=== PATIENT | male | born 1940 | race Caucasian/White ===

== ENCOUNTER 2017-12-30 18:26 | Inpatient (IN) | payer MEDICARE, MEDICAID ==
[~2017-12-30] VITALS: Ht 172.7 cm; Wt 71.6 kg
[2017-12-30] MEDS ORDERED: NALOXONE HCL 0.4 MG/ML VIAL IV ONE (18:45)
[2017-12-30 19:19] LABS: Eosinophils # (auto) 0.1 uL; Eosinophils % (auto) 0.7 % (0.0-7.0); Nucleated Red Blood Cells % 0.1 %; White Blood Cell 14.6 10^3/uL (4.4-10.8)
[2017-12-30 19:21] LABS: Basophils # (auto) 0 uL; Basophils % (auto) 0.3 % (0.0-2.0); Hematocrit 23.9 % (41.0-53.0); Hemoglobin 7.7 g/dL (13.5-17.5); Lymphocytes # (auto) 1.4 uL; Lymphocytes % (auto) 9.4 % (10.0-50.0); Mean Corpuscular Hemoglobin 28.5 pg (28.0-32.0); Mean Corpuscular Hgb Conc. 32.3 g/dL (32.0-36.0); Mean Corpuscular Volume 88.2 fL (80.0-100.0); Monocytes # (auto) 0.9 uL; Monocytes % (auto) 6.3 % (0.0-12.0); Neutrophils # (auto) 12.2 uL; Neutrophils % (auto) 83.3 % (37.0-80.0); Platelet Count (auto) 350 10^3/uL (140-450); Red Blood Cells 2.71 10^6/uL (4.5-5.90); Red Cell Distribution Width 14.6 % (11.8-14.3)
[2017-12-30 19:51] LABS: Alanine Aminotransferase 20 U/L (16-61); Albumin 1.7 g/dL (3.4-5.0); Alkaline Phosphatase 94 U/L (45-117); Anion Gap 9 (5-15); Aspartate Aminotransferase 18 U/L (15-37); BUN/Creatinine Ratio 49.2; Bilirubin, Total 0.2 mg/dL (0.2-1.0); Blood Alcohol < 3.0 mg/dL (0-5); Blood Urea Nitrogen 63 mg/dL (7-18); Calcium 8.9 mg/dL (8.5-10.1); Carbon Dioxide 30 mmol/L (21-32); Chloride 107 mmol/L (98-107); GFR African American 70 mL/min; GFR Non-African American 58 mL/min; Glucose 193 mg/dL (74-106); Magnesium 2.9 mg/dL (1.6-2.6); Sodium 146 mmol/L (136-145); Total Protein 7.6 g/dL (6.4-8.2)
[2017-12-30 20:14] LABS: INR 1.02 (0.9-1.15); Partial Thromboplastin Time 26.1 sec (23.78-33.04); Prothrombin Time 10.9 sec (9.27-12.13)
[2017-12-30] MEDS ORDERED: LEVOFLOXACIN 750MG 150 ML IV ONE (20:15)
[2017-12-30] MEDS ORDERED: PIPERACILLIN-TAZOB 3.375GM 100 ML IV ONE (20:30)
[2017-12-30] MEDS ORDERED: DEXTROSE (50%) 50ML SYRG IV PRN (21:45)
[2017-12-30] MEDS ORDERED: SODIUM CHLORIDE 0.9% 1,000 ML IV ONE (21:45)
[2017-12-30] MEDS ORDERED: VANCOMYCIN 1GM/250ML 250 ML IV ONE (21:45)
[2017-12-30] MEDS ORDERED: SODIUM CHLORIDE 0.9% 1,000 ML IV SCH (21:45)
[2017-12-30] MEDS ORDERED: ONDANSETRON HCL 4 MG/2 ML VIAL IV PRN (21:45)
[2017-12-30] MEDS ORDERED: NITROGLYCERIN 0.4 MG SL TAB SL PRN (21:45)
[2017-12-30] MEDS ORDERED: IOHEXOL 350 MG/ML 100ML IJ ONE (21:48)
[2017-12-31] VITALS (11 sets, daily range): BP systolic 121–162; BP diastolic 67–88
[2017-12-31] MEDS ORDERED: InsuLIN REG 1unit/0.01ml Soln (100units/ml) SC SCH
[2017-12-31 04:57] LABS: Urine Amorphous Crystal FEW /hpf (None Seen); Urine Bacteria FEW /hpf (None Seen); Urine Blood Negative /uL (Negative); Urine Specific Gravity 1.022 (1.001-1.035); Urine WBC 129 /hpf (0 - 3)
[2017-12-31 05:07] LABS: Amphetamine Screen, Urine NEGATIVE (NEGATIVE); Barbiturate Scree,Urine NEGATIVE (NEGATIVE); Benzodiazephine Screen, Urine NEGATIVE (NEGATIVE); Cannabinoid Screen, Urine NEGATIVE (NEGATIVE); Cocaine Screen, Urine NEGATIVE (NEGATIVE); Opiate Scree,Urine NEGATIVE (NEGATIVE); Phencyclidine Screen, Urine NEGATIVE (NEGATIVE)
[2017-12-31] MEDS: ACCU-CHEK COMFORT CURVE STRIP VI SCH ×5 (06:35→23:48)
[2017-12-31] MEDS: PIPERACILLIN-TAZOB 3.375GM 100 ML IV SCH ×4 (06:35→20:57)
[2017-12-31 06:46] LABS: Basophils # (auto) 0.1 uL; Basophils % (auto) 0.6 % (0.0-2.0); Eosinophils # (auto) 0.2 uL; Eosinophils % (auto) 1.5 % (0.0-7.0); Hematocrit 28.6 % (41.0-53.0); Hemoglobin 9.4 g/dL (13.5-17.5); Lymphocytes # (auto) 1.6 uL; Lymphocytes % (auto) 13.1 % (10.0-50.0); Mean Corpuscular Hemoglobin 28.9 pg (28.0-32.0); Mean Corpuscular Volume 87.6 fL (80.0-100.0); Neutrophils # (auto) 9.2 uL; Neutrophils % (auto) 76.8 % (37.0-80.0); Nucleated Red Blood Cells % 0.1 %; Platelet Count (auto) 342 10^3/uL (140-450); Red Blood Cells 3.27 10^6/uL (4.5-5.90); Red Cell Distribution Width 14.5 % (11.8-14.3); White Blood Cell 11.9 10^3/uL (4.4-10.8)
[2017-12-31 07:00] LABS: Albumin 1.7 g/dL (3.4-5.0); BUN/Creatinine Ratio 41.2; Calcium 8.7 mg/dL (8.5-10.1); Potassium 3.5 mmol/L (3.5-5.1)
[2017-12-31 07:03] LABS: Bilirubin, Total 0.3 mg/dL (0.2-1.0); Total Protein 7.8 g/dL (6.4-8.2)
[2017-12-31] MEDS ORDERED: SOD CHL 0.45% 1,000 ML IV SCH (07:30)
[2017-12-31] MEDS ORDERED: VANCOMYCIN PER PHARMACY 0 MG IV SCH (10:00)
[2017-12-31] MEDS: ENOXAPARIN SOD 40 MG/0.4 ML SYRINGE SC SCH (10:09)
[2017-12-31] MEDS: PANTOPRAZOLE 40 MG/10 ML VIAL IV SCH (10:09)
[2017-12-31] MEDS: InsuLIN REG 1unit/0.01ml Soln (100units/ml) SC SCH ×3 (15:12→23:48)
[2017-12-31] MEDS: SOD CHL 0.45% WITH 20MEQ KCL 1,000 ML IV SCH (16:31)
[2017-12-31 16:41] LABS: BUN/Creatinine Ratio 32.7; Calcium 8.6 mg/dL (8.5-10.1); Potassium 3.5 mmol/L (3.5-5.1)
[2017-12-31] MEDS ORDERED: Diabetisource AC 1 Liter GT ONE (20:15)
[2018-01-01] MEDS: SOD CHL 0.45% WITH 20MEQ KCL 1,000 ML IV SCH ×3 (01:44→22:35)
[2018-01-01] MEDS ORDERED: VANCOMYCIN 1GM/250ML 250 ML IV SCH ×2 (03:00→09:15)
[2018-01-01] MEDS: PIPERACILLIN-TAZOB 3.375GM 100 ML IV SCH ×4 (03:10→21:12)
[2018-01-01 05:17] VITALS: BP 153/71
[2018-01-01] MEDS: ACCU-CHEK COMFORT CURVE STRIP VI SCH ×4 (05:51→23:39)
[2018-01-01] MEDS: InsuLIN REG 1unit/0.01ml Soln (100units/ml) SC SCH ×4 (05:52→23:39)
[2018-01-01 06:12] LABS: Basophils # (auto) 0 uL; Basophils % (auto) 0.3 % (0.0-2.0); Eosinophils # (auto) 0.1 uL; Eosinophils % (auto) 0.7 % (0.0-7.0); Hematocrit 28.8 % (41.0-53.0); Hemoglobin 9.4 g/dL (13.5-17.5); Lymphocytes # (auto) 1.1 uL; Lymphocytes % (auto) 9.2 % (10.0-50.0); Mean Corpuscular Hgb Conc. 32.8 g/dL (32.0-36.0); Mean Corpuscular Volume 88.4 fL (80.0-100.0); Monocytes # (auto) 0.6 uL; Monocytes % (auto) 5.4 % (0.0-12.0); Neutrophils # (auto) 9.8 uL; Neutrophils % (auto) 84.4 % (37.0-80.0); Platelet Count (auto) 359 10^3/uL (140-450); Red Blood Cells 3.26 10^6/uL (4.5-5.90); Red Cell Distribution Width 14.7 % (11.8-14.3); White Blood Cell 11.6 10^3/uL (4.4-10.8)
[2018-01-01 06:33] LABS: Albumin 1.7 g/dL (3.4-5.0); BUN/Creatinine Ratio 29.2; Bilirubin, Total 0.3 mg/dL (0.2-1.0); Calcium 8.4 mg/dL (8.5-10.1); Potassium 3.5 mmol/L (3.5-5.1); Total Protein 7.6 g/dL (6.4-8.2)
[2018-01-01] MEDS: HYDROcodone-ACET 5/325MG TAB PO PRN ×3 (08:00→18:14)
[2018-01-01 09:00] VITALS: BP 155/85
[2018-01-01] MEDS: PANTOPRAZOLE 40 MG/10 ML VIAL IV SCH (09:11)
[2018-01-01] MEDS: ENOXAPARIN SOD 40 MG/0.4 ML SYRINGE SC SCH (09:12)
[2018-01-01] MEDS ORDERED: CARV12.544 PO (09:54)
[2018-01-01] MEDS ORDERED: LISI-706 PO (09:54)
[2018-01-01] MEDS ORDERED: GLIP-116 PO (09:54)
[2018-01-01] MEDS ORDERED: ISOS20TA56 PO (09:54)
[2018-01-01] MEDS ORDERED: DOCU-137 PO (09:54)
[2018-01-01] MEDS ORDERED: ASPI-231 PO (09:54)
[2018-01-01] MEDS ORDERED: LEVO25TA6 PO (09:54)
[2018-01-01] MEDS ORDERED: EMPA1TAB PO (09:54)
[2018-01-01] MEDS ORDERED: ATO40T PO (09:54)
[2018-01-01] MEDS ORDERED: POTA10TA51 PO (09:54)
[2018-01-01] MEDS ORDERED: MULT-569 PO (09:54)
[2018-01-01] MEDS ORDERED: IBUP400T21 PO (09:54)
[2018-01-01] MEDS ORDERED: FERR-7 PO (09:54)
[2018-01-01] MEDS ORDERED: SITA100T7 PO (09:54)
[2018-01-01] MEDS ORDERED: METF-929 PO (09:54)
[2018-01-01 13:17] VITALS: BP 148/81
[2018-01-01] MEDS: MORPHINE SULF(PF) 0.5MG/ML 10ML VIAL IV PRN ×2 (13:33→17:25)
[2018-01-01] MEDS: NALBUPHINE HCL 10 MG/1ml INJECTION IV PRN (14:23)
[2018-01-01 17:04] VITALS: BP 155/77
[2018-01-01] MEDS: VANCOMYCIN 1GM/250ML 250 ML IV SCH (21:12)
[2018-01-01 22:00] VITALS: BP 166/76
[2018-01-01 23:28] VITALS: BP 146/70
[2018-01-02] MEDS: PIPERACILLIN-TAZOB 3.375GM 100 ML IV SCH ×4 (03:00→22:10)
[2018-01-02] MEDS: Diabetisource AC 1 Liter GT SCH (04:18)
[2018-01-02 05:00] VITALS: BP 144/78
[2018-01-02] MEDS: ACCU-CHEK COMFORT CURVE STRIP VI SCH ×3 (05:49→18:00)
[2018-01-02] MEDS: InsuLIN REG 1unit/0.01ml Soln (100units/ml) SC SCH ×3 (05:50→18:00)
[2018-01-02 06:21] LABS: Basophils # (auto) 0 uL; Basophils % (auto) 0.4 % (0.0-2.0); Eosinophils # (auto) 0.2 uL; Eosinophils % (auto) 1.9 % (0.0-7.0); Hematocrit 26.5 % (41.0-53.0); Hemoglobin 8.9 g/dL (13.5-17.5); Lymphocytes # (auto) 1.5 uL; Lymphocytes % (auto) 14.4 % (10.0-50.0); Mean Corpuscular Hemoglobin 29.6 pg (28.0-32.0); Mean Corpuscular Hgb Conc. 33.5 g/dL (32.0-36.0); Mean Corpuscular Volume 88.4 fL (80.0-100.0); Monocytes # (auto) 0.8 uL; Monocytes % (auto) 8.2 % (0.0-12.0); Neutrophils # (auto) 7.6 uL; Neutrophils % (auto) 75.1 % (37.0-80.0); Platelet Count (auto) 349 10^3/uL (140-450); Red Cell Distribution Width 14.6 % (11.8-14.3); White Blood Cell 10.2 10^3/uL (4.4-10.8)
[2018-01-02 06:46] LABS: Albumin 1.7 g/dL (3.4-5.0); BUN/Creatinine Ratio 26.5; Calcium 8.1 mg/dL (8.5-10.1); Potassium 3.6 mmol/L (3.5-5.1)
[2018-01-02 06:49] LABS: Bilirubin, Total 0.5 mg/dL (0.2-1.0); Total Protein 7.2 g/dL (6.4-8.2)
[2018-01-02] MEDS: HYDROcodone-ACET 5/325MG TAB PO PRN (07:22)
[2018-01-02] MEDS: SOD CHL 0.45% WITH 20MEQ KCL 1,000 ML IV SCH (07:30)
[2018-01-02 08:02] VITALS: BP 149/78
[2018-01-02] MEDS: ENOXAPARIN SOD 40 MG/0.4 ML SYRINGE SC SCH (09:32)
[2018-01-02] MEDS: PANTOPRAZOLE 40 MG/10 ML VIAL IV SCH (09:32)
[2018-01-02] MEDS: NALBUPHINE HCL 10 MG/1ml INJECTION IV PRN (09:32)
[2018-01-02 12:41] VITALS: BP 98/47
[2018-01-02] MEDS: VANCOMYCIN 1GM/250ML 250 ML IV SCH (15:00)
[2018-01-02 16:37] VITALS: BP 155/83
[2018-01-02] MEDS ORDERED: HYDROcodone-ACET 10/325MG TAB PO ONE (17:45)
[2018-01-02 22:00] VITALS: BP 153/87
[2018-01-02] MEDS: D5W/SOD CHL 0.2% 1,000 ML IV SCH (22:10)
[2018-01-02] MEDS: POTASSIUM CHL 10% (20 MEQ/15ML) 15ml ORAL SOLN GT SCH (22:16)
[2018-01-03] MEDS: D5W/SOD CHL 0.2% 1,000 ML IV SCH ×3 (00:15→20:07)
[2018-01-03] MEDS: Diabetisource AC 1 Liter GT SCH (00:45)
[2018-01-03] MEDS: InsuLIN REG 1unit/0.01ml Soln (100units/ml) SC SCH ×4 (00:59→17:50)
[2018-01-03] MEDS: PIPERACILLIN-TAZOB 3.375GM 100 ML IV SCH ×4 (02:46→21:07)
[2018-01-03 05:07] VITALS: BP 160/81
[2018-01-03] MEDS: ACCU-CHEK COMFORT CURVE STRIP VI SCH ×4 (06:08→17:19)
[2018-01-03 07:43] VITALS: BP 168/82
[2018-01-03] MEDS: PANTOPRAZOLE 40 MG/10 ML VIAL IV SCH (09:44)
[2018-01-03] MEDS: ENOXAPARIN SOD 40 MG/0.4 ML SYRINGE SC SCH (09:44)
[2018-01-03] MEDS: POTASSIUM CHL 10% (20 MEQ/15ML) 15ml ORAL SOLN GT SCH ×2 (09:45→21:08)
[2018-01-03] MEDS: VANCOMYCIN 1GM/250ML 250 ML IV SCH (10:15)
[2018-01-03 12:03] VITALS: BP 163/73
[2018-01-03] MEDS ORDERED: LISINOPRIL 10 MG TAB PO ONE (16:15)
[2018-01-03 16:36] VITALS: BP 131/72
[2018-01-03 21:48] VITALS: BP 147/69
[2018-01-04] MEDS: ACCU-CHEK COMFORT CURVE STRIP VI SCH ×4 (00:42→18:02)
[2018-01-04] MEDS: InsuLIN REG 1unit/0.01ml Soln (100units/ml) SC SCH ×4 (00:52→18:02)
[2018-01-04] MEDS: VANCOMYCIN 1GM/250ML 250 ML IV SCH ×2 (03:25→21:03)
[2018-01-04] MEDS: PIPERACILLIN-TAZOB 3.375GM 100 ML IV SCH ×4 (03:25→21:02)
[2018-01-04 05:09] VITALS: BP 136/64
[2018-01-04] MEDS: D5W/SOD CHL 0.2% 1,000 ML IV SCH ×2 (06:08→16:20)
[2018-01-04 07:47] LABS: Basophils # (auto) 0.1 uL; Basophils % (auto) 0.4 % (0.0-2.0); Eosinophils # (auto) 0.1 uL; Hemoglobin 10.5 g/dL (13.5-17.5); Lymphocytes # (auto) 1.5 uL; Lymphocytes % (auto) 11.4 % (10.0-50.0); Mean Corpuscular Hemoglobin 29.2 pg (28.0-32.0); Mean Corpuscular Hgb Conc. 32.9 g/dL (32.0-36.0); Mean Corpuscular Volume 88.8 fL (80.0-100.0); Monocytes # (auto) 0.8 uL; Monocytes % (auto) 6.4 % (0.0-12.0); Neutrophils # (auto) 10.4 uL; Neutrophils % (auto) 80.8 % (37.0-80.0); Platelet Count (auto) 324 10^3/uL (140-450); Red Blood Cells 3.61 10^6/uL (4.5-5.90); Red Cell Distribution Width 14.3 % (11.8-14.3); White Blood Cell 12.9 10^3/uL (4.4-10.8)
[2018-01-04 07:54] LABS: Albumin 1.8 g/dL (3.4-5.0); BUN/Creatinine Ratio 20.8; Bilirubin, Total 0.4 mg/dL (0.2-1.0); Calcium 8.4 mg/dL (8.5-10.1); Total Protein 7.8 g/dL (6.4-8.2)
[2018-01-04 08:00] VITALS: BP 151/71
[2018-01-04 09:00] VITALS: BP 151/71
[2018-01-04] MEDS: PANTOPRAZOLE 40 MG/10 ML VIAL IV SCH (10:45)
[2018-01-04] MEDS: LISINOPRIL 10 MG TAB PO SCH (10:45)
[2018-01-04] MEDS: ENOXAPARIN SOD 40 MG/0.4 ML SYRINGE SC SCH (10:45)
[2018-01-04] MEDS: POTASSIUM CHL 10% (20 MEQ/15ML) 15ml ORAL SOLN GT SCH ×2 (10:46→22:39)
[2018-01-04] MEDS: ACETAMINOPHEN 325 MG TAB PO PRN (11:45)
[2018-01-04 12:46] VITALS: BP 141/76
[2018-01-04] MEDS: LACTULOSE 20Gm/30ML SOLN PO SCH (13:53)
[2018-01-04] MEDS: HYDROcodone-ACET 10/325MG TAB PO PRN (16:21)
[2018-01-04 16:51] VITALS: BP 120/61
[2018-01-04 21:30] VITALS: BP 122/56
[2018-01-04] MEDS: ASCORBIC ACID 500 MG TAB PO SCH (22:39)
[2018-01-04] MEDS: PRO-STAT 64 30ML PO SCH (22:39)
[2018-01-05] MEDS: ACCU-CHEK COMFORT CURVE STRIP VI SCH ×4 (00:10→18:18)
[2018-01-05] MEDS: InsuLIN REG 1unit/0.01ml Soln (100units/ml) SC SCH ×4 (00:10→18:51)
[2018-01-05] MEDS: D5W/SOD CHL 0.2% 1,000 ML IV SCH ×3 (00:21→23:24)
[2018-01-05] MEDS: PIPERACILLIN-TAZOB 3.375GM 100 ML IV SCH ×3 (02:51→18:17)
[2018-01-05 05:00] VITALS: BP 143/66
[2018-01-05 08:46] VITALS: BP 152/87
[2018-01-05] MEDS: POTASSIUM CHL 10% (20 MEQ/15ML) 15ml ORAL SOLN GT SCH ×2 (11:32→22:33)
[2018-01-05] MEDS: PANTOPRAZOLE 40 MG/10 ML VIAL IV SCH (11:32)
[2018-01-05] MEDS: LACTULOSE 20Gm/30ML SOLN PO SCH (11:32)
[2018-01-05] MEDS: ENOXAPARIN SOD 40 MG/0.4 ML SYRINGE SC SCH (11:33)
[2018-01-05] MEDS: ASCORBIC ACID 500 MG TAB PO SCH ×2 (11:33→22:33)
[2018-01-05] MEDS: MULTIPLE VITAMINS W/ MINERALS TAB PO SCH (11:33)
[2018-01-05] MEDS: LISINOPRIL 10 MG TAB PO SCH (11:35)
[2018-01-05] MEDS: Diabetisource AC 1 Liter GT SCH (11:35)
[2018-01-05] MEDS: ACETAMINOPHEN 325 MG TAB PO PRN (11:36)
[2018-01-05] MEDS: PRO-STAT 64 30ML PO SCH ×2 (11:36→22:33)
[2018-01-05 13:00] VITALS: BP_SYST 134; BP_SYST 152; BP_DIAS 64; BP_DIAS 87
[2018-01-05] MEDS: VANCOMYCIN 1GM/250ML 250 ML IV SCH (16:00)
[2018-01-05 17:00] VITALS: BP 145/68
[2018-01-05 22:00] VITALS: BP 129/58
[2018-01-06] MEDS: PIPERACILLIN-TAZOB 3.375GM 100 ML IV SCH ×5 (00:50→23:39)
[2018-01-06] MEDS: InsuLIN REG 1unit/0.01ml Soln (100units/ml) SC SCH ×5 (00:50→23:52)
[2018-01-06 05:00] VITALS: BP 160/73
[2018-01-06] MEDS: ACCU-CHEK COMFORT CURVE STRIP VI SCH ×5 (06:00→23:52)
[2018-01-06 06:53] LABS: Basophils # (auto) 0 uL; Basophils % (auto) 0.5 % (0.0-2.0); Eosinophils # (auto) 0.1 uL; Eosinophils % (auto) 1.7 % (0.0-7.0); Hematocrit 29.4 % (41.0-53.0); Hemoglobin 9.9 g/dL (13.5-17.5); Lymphocytes # (auto) 1.4 uL; Lymphocytes % (auto) 16.1 % (10.0-50.0); Mean Corpuscular Hemoglobin 29.7 pg (28.0-32.0); Mean Corpuscular Hgb Conc. 33.5 g/dL (32.0-36.0); Mean Corpuscular Volume 88.7 fL (80.0-100.0); Monocytes # (auto) 0.7 uL; Monocytes % (auto) 7.6 % (0.0-12.0); Neutrophils # (auto) 6.5 uL; Neutrophils % (auto) 74.1 % (37.0-80.0); Platelet Count (auto) 296 10^3/uL (140-450); Red Blood Cells 3.31 10^6/uL (4.5-5.90); Red Cell Distribution Width 14.5 % (11.8-14.3); White Blood Cell 8.8 10^3/uL (4.4-10.8)
[2018-01-06 06:58] LABS: Calcium 8.8 mg/dL (8.5-10.1)
[2018-01-06 07:34] LABS: Partial Thromboplastin Time 30.2 sec (23.78-33.04); Prothrombin Time 10.7 sec (9.27-12.13)
[2018-01-06] MEDS: D5W/SOD CHL 0.2% 1,000 ML IV SCH ×2 (08:15→18:01)
[2018-01-06] MEDS ORDERED: IOHEXOL 350 MG/ML 100ML IJ ONE (08:36)
[2018-01-06] MEDS ORDERED: LIDOCAINE 2% (LOCAL ANESTH.) PF 5ml SDV ONE (08:36)
[2018-01-06 09:00] VITALS: BP 152/78
[2018-01-06] MEDS: PANTOPRAZOLE 40 MG/10 ML VIAL IV SCH (09:13)
[2018-01-06] MEDS: LISINOPRIL 10 MG TAB PO SCH (09:14)
[2018-01-06] MEDS: PRO-STAT 64 30ML PO SCH ×2 (10:00→21:38)
[2018-01-06] MEDS: ENOXAPARIN SOD 40 MG/0.4 ML SYRINGE SC SCH (10:00)
[2018-01-06] MEDS: ASCORBIC ACID 500 MG TAB PO SCH ×2 (10:00→21:36)
[2018-01-06] MEDS: POTASSIUM CHL 10% (20 MEQ/15ML) 15ml ORAL SOLN GT SCH ×2 (10:00→21:37)
[2018-01-06] MEDS: LACTULOSE 20Gm/30ML SOLN PO SCH (10:00)
[2018-01-06] MEDS: MULTIPLE VITAMINS W/ MINERALS TAB PO SCH (10:00)
[2018-01-06] MEDS ORDERED: fentaNYL CITRATE 100 MCG/2 ML VL ONE (10:16)
[2018-01-06] MEDS ORDERED: VERAPAMIL 2.5MG/ML INJ 2ML VIAL IV ONE ×2 (10:16→11:29)
[2018-01-06] MEDS ORDERED: MIDAZOLAM HCL 1MG/1ML-2 ML VIAL ONE (10:16)
[2018-01-06] MEDS ORDERED: EPTIFIBATIDE INJ (2MG/ML) 10ML VIAL IV ONE (10:18)
[2018-01-06] MEDS ORDERED: ANGIOMAX 250 MG VIAL IV ONE ×2 (10:21→12:18)
[2018-01-06] MEDS ORDERED: SODIUM CHL 0.9% 50 ML ONE ×2 (10:21→12:18)
[2018-01-06] MEDS ORDERED: NITROGLYCERIN 5MG/ML 10ML VIAL IV ONE (11:29)
[2018-01-06 17:00] VITALS: BP 147/72
[2018-01-06] MEDS: VANCOMYCIN 1GM/250ML 250 ML IV SCH (21:10)
[2018-01-06 22:00] VITALS: BP 129/71
[2018-01-07] MEDS: D5W/SOD CHL 0.2% 1,000 ML IV SCH ×3 (04:15→23:31)
[2018-01-07 05:12] VITALS: BP 152/75
[2018-01-07] MEDS: PIPERACILLIN-TAZOB 3.375GM 100 ML IV SCH (06:12)
[2018-01-07] MEDS: ACCU-CHEK COMFORT CURVE STRIP VI SCH ×4 (06:14→23:30)
[2018-01-07] MEDS: InsuLIN REG 1unit/0.01ml Soln (100units/ml) SC SCH ×4 (06:15→23:30)
[2018-01-07 07:38] LABS: Chloride 105 mmol/L (98-107); Potassium 4.4 mmol/L (3.5-5.1); Sodium 140 mmol/L (136-145)
[2018-01-07 07:43] LABS: Alanine Aminotransferase 43 U/L (16-61); Albumin 1.6 g/dL (3.4-5.0); Anion Gap 12 (5-15); Aspartate Aminotransferase 36 U/L (15-37); BUN/Creatinine Ratio 22.8; Blood Urea Nitrogen 23 mg/dL (7-18); Carbon Dioxide 23 mmol/L (21-32); GFR African American 92 mL/min; GFR Non-African American 76 mL/min; Glucose 223 mg/dL (74-106)
[2018-01-07 07:45] LABS: Alkaline Phosphatase 80 U/L (45-117); Bilirubin, Total 0.3 mg/dL (0.2-1.0); Total Protein 7.5 g/dL (6.4-8.2)
[2018-01-07 09:00] VITALS: BP 135/61
[2018-01-07] MEDS ORDERED: Diabetisource AC 1 Liter GT SCH (10:15)
[2018-01-07] MEDS: LACTULOSE 20Gm/30ML SOLN PO SCH ×2 (10:23→22:57)
[2018-01-07] MEDS: MULTIPLE VITAMINS W/ MINERALS TAB PO SCH (10:24)
[2018-01-07] MEDS: ASCORBIC ACID 500 MG TAB PO SCH ×2 (10:24→22:58)
[2018-01-07] MEDS: PANTOPRAZOLE 40 MG/10 ML VIAL IV SCH (10:24)
[2018-01-07] MEDS: ENOXAPARIN SOD 40 MG/0.4 ML SYRINGE SC SCH (10:24)
[2018-01-07] MEDS: PRO-STAT 64 30ML PO SCH ×2 (10:25→22:00)
[2018-01-07] MEDS: LISINOPRIL 10 MG TAB PO SCH (10:25)
[2018-01-07] MEDS: POTASSIUM CHL 10% (20 MEQ/15ML) 15ml ORAL SOLN GT SCH ×2 (10:26→22:57)
[2018-01-07] MEDS ORDERED: MEROPENEM 1gm/20ml IVPUSH 20 ML IV SCH (11:00)
[2018-01-07] MEDS ORDERED: MEROPENEM 1gm/20ml IVPUSH 20 ML IV ONE (11:00)
[2018-01-07 13:11] VITALS: BP 142/61
[2018-01-07 17:00] VITALS: BP 143/70
[2018-01-07] MEDS: VANCOMYCIN 1GM/250ML 250 ML IV SCH ×2 (21:00→22:59)
[2018-01-07 22:00] VITALS: BP 153/82
[2018-01-07] MEDS: MEROPENEM 1gm/20ml IVPUSH 20 ML IV SCH (22:57)
[2018-01-08 05:00] VITALS: BP 150/80
[2018-01-08] MEDS: ACCU-CHEK COMFORT CURVE STRIP VI SCH ×4 (06:00→23:28)
[2018-01-08] MEDS: MEROPENEM 1gm/20ml IVPUSH 20 ML IV SCH ×3 (06:10→22:38)
[2018-01-08] MEDS: ACETAMINOPHEN 325 MG TAB PO PRN (06:13)
[2018-01-08] MEDS: InsuLIN REG 1unit/0.01ml Soln (100units/ml) SC SCH ×4 (06:44→23:28)
[2018-01-08 06:48] LABS: Calcium 8.7 mg/dL (8.5-10.1); Potassium 4.5 mmol/L (3.5-5.1)
[2018-01-08 08:00] VITALS: BP 135/61
[2018-01-08 08:15] LABS: Basophils # (auto) 0.1 uL; Basophils % (auto) 0.4 % (0.0-2.0); Eosinophils # (auto) 0.1 uL; Eosinophils % (auto) 0.5 % (0.0-7.0); Hemoglobin 8.9 g/dL (13.5-17.5); Lymphocytes # (auto) 1.7 uL; Lymphocytes % (auto) 11.5 % (10.0-50.0); Mean Corpuscular Hemoglobin 28.1 pg (28.0-32.0); Mean Corpuscular Hgb Conc. 31.9 g/dL (32.0-36.0); Mean Corpuscular Volume 87.9 fL (80.0-100.0); Monocytes # (auto) 0.8 uL; Monocytes % (auto) 5.5 % (0.0-12.0); Neutrophils % (auto) 82.1 % (37.0-80.0); Platelet Count (auto) 273 10^3/uL (140-450); Red Blood Cells 3.19 10^6/uL (4.5-5.90); Red Cell Distribution Width 14.9 % (11.8-14.3); White Blood Cell 14.6 10^3/uL (4.4-10.8)
[2018-01-08 09:00] VITALS: BP 137/63
[2018-01-08] MEDS: LACTULOSE 20Gm/30ML SOLN PO SCH ×2 (09:13→22:36)
[2018-01-08] MEDS: PANTOPRAZOLE 40 MG/10 ML VIAL IV SCH (09:13)
[2018-01-08] MEDS: MULTIPLE VITAMINS W/ MINERALS TAB PO SCH (09:14)
[2018-01-08] MEDS: ASCORBIC ACID 500 MG TAB PO SCH ×2 (09:14→22:36)
[2018-01-08] MEDS: LISINOPRIL 10 MG TAB PO SCH (09:15)
[2018-01-08] MEDS: ENOXAPARIN SOD 40 MG/0.4 ML SYRINGE SC SCH (09:31)
[2018-01-08] MEDS: POTASSIUM CHL 10% (20 MEQ/15ML) 15ml ORAL SOLN GT SCH ×2 (10:00→22:36)
[2018-01-08] MEDS: PRO-STAT 64 30ML PO SCH ×2 (10:00→22:00)
[2018-01-08] MEDS: D5W/SOD CHL 0.2% 1,000 ML IV SCH ×2 (10:15→20:15)
[2018-01-08 13:02] VITALS: BP 146/72
[2018-01-08 17:00] VITALS: BP 140/60
[2018-01-08] MEDS: HYDROcodone-ACET 10/325MG TAB PO PRN (22:37)
[2018-01-08 22:52] VITALS: BP 141/65
[2018-01-08] MEDS ORDERED: VANCOMYCIN 1GM/250ML 250 ML IV SCH (23:00)
[2018-01-09 05:24] VITALS: BP 156/62
[2018-01-09 05:27] LABS: Basophils # (auto) 0.1 uL; Basophils % (auto) 0.5 % (0.0-2.0); Eosinophils # (auto) 0.1 uL; Eosinophils % (auto) 0.6 % (0.0-7.0); Hematocrit 25.3 % (41.0-53.0); Hemoglobin 8.1 g/dL (13.5-17.5); Lymphocytes # (auto) 1.3 uL; Lymphocytes % (auto) 10.9 % (10.0-50.0); Mean Corpuscular Hemoglobin 28.2 pg (28.0-32.0); Mean Corpuscular Hgb Conc. 31.9 g/dL (32.0-36.0); Mean Corpuscular Volume 88.3 fL (80.0-100.0); Monocytes # (auto) 0.3 uL; Monocytes % (auto) 2.8 % (0.0-12.0); Neutrophils # (auto) 10.4 uL; Neutrophils % (auto) 85.2 % (37.0-80.0); Platelet Count (auto) 251 10^3/uL (140-450); Red Blood Cells 2.86 10^6/uL (4.5-5.90); Red Cell Distribution Width 14.4 % (11.8-14.3); White Blood Cell 12.2 10^3/uL (4.4-10.8)
[2018-01-09] MEDS: D5W/SOD CHL 0.2% 1,000 ML IV SCH ×2 (05:39→13:20)
[2018-01-09] MEDS: ACCU-CHEK COMFORT CURVE STRIP VI SCH ×4 (05:39→23:39)
[2018-01-09] MEDS: MEROPENEM 1gm/20ml IVPUSH 20 ML IV SCH ×3 (05:39→22:35)
[2018-01-09 05:40] LABS: Albumin 1.6 g/dL (3.4-5.0); BUN/Creatinine Ratio 24.5; Potassium 4.3 mmol/L (3.5-5.1)
[2018-01-09 05:43] LABS: Bilirubin, Total 0.2 mg/dL (0.2-1.0); Total Protein 7.5 g/dL (6.4-8.2)
[2018-01-09] MEDS: InsuLIN REG 1unit/0.01ml Soln (100units/ml) SC SCH ×4 (05:47→23:39)
[2018-01-09 09:00] VITALS: BP 158/76
[2018-01-09] MEDS: PRO-STAT 64 30ML PO SCH ×2 (10:00→22:00)
[2018-01-09] MEDS ORDERED: LIDOCAINE 1% (LOCAL ANESTH.) PF 5ml SDV ID ONE (10:30)
[2018-01-09] MEDS: PANTOPRAZOLE 40 MG/10 ML VIAL IV SCH (10:46)
[2018-01-09] MEDS: POTASSIUM CHL 10% (20 MEQ/15ML) 15ml ORAL SOLN GT SCH ×2 (10:46→22:17)
[2018-01-09] MEDS: ENOXAPARIN SOD 40 MG/0.4 ML SYRINGE SC SCH (10:47)
[2018-01-09] MEDS: ASCORBIC ACID 500 MG TAB PO SCH ×2 (10:47→22:18)
[2018-01-09] MEDS: MULTIPLE VITAMINS W/ MINERALS TAB PO SCH (10:48)
[2018-01-09] MEDS: LISINOPRIL 10 MG TAB PO SCH (10:48)
[2018-01-09 13:00] VITALS: BP 150/72
[2018-01-09] MEDS: LACTULOSE 20Gm/30ML SOLN PO SCH ×3 (13:27→22:17)
[2018-01-09 17:00] VITALS: BP 148/74
[2018-01-09 22:06] VITALS: BP 169/72
[2018-01-09] MEDS: VANCOMYCIN 1,500 MG in D5W 5% 250 ML IV SCH (22:17)
[2018-01-09] MEDS: SODIUM CHLOR 0.9% PF (SALINE LOCK) 10ML VIAL/SYR IV SCH (22:17)
[2018-01-09] MEDS: HYDROcodone-ACET 10/325MG TAB PO PRN (22:19)
[2018-01-10] MEDS: D5W/SOD CHL 0.2% 1,000 ML IV SCH ×3 (02:35→22:51)
[2018-01-10 04:48] VITALS: BP 173/79
[2018-01-10 05:48] LABS: Potassium 4.1 mmol/L (3.5-5.1)
[2018-01-10 05:53] LABS: Albumin 1.8 g/dL (3.4-5.0); BUN/Creatinine Ratio 29.9; Calcium 8.6 mg/dL (8.5-10.1)
[2018-01-10 05:57] LABS: Bilirubin, Total 0.4 mg/dL (0.2-1.0)
[2018-01-10] MEDS: LACTULOSE 20Gm/30ML SOLN PO SCH ×4 (06:26→22:50)
[2018-01-10] MEDS: ACCU-CHEK COMFORT CURVE STRIP VI SCH ×3 (06:26→18:03)
[2018-01-10] MEDS: MEROPENEM 1gm/20ml IVPUSH 20 ML IV SCH ×3 (06:27→22:55)
[2018-01-10] MEDS: InsuLIN REG 1unit/0.01ml Soln (100units/ml) SC SCH ×3 (06:42→18:18)
[2018-01-10 07:30] VITALS: BP 168/84
[2018-01-10 09:05] VITALS: BP 168/84
[2018-01-10] MEDS: ENOXAPARIN SOD 40 MG/0.4 ML SYRINGE SC SCH (10:28)
[2018-01-10] MEDS: POTASSIUM CHL 10% (20 MEQ/15ML) 15ml ORAL SOLN GT SCH ×2 (10:28→22:50)
[2018-01-10] MEDS: LISINOPRIL 10 MG TAB PO SCH (10:30)
[2018-01-10] MEDS: PANTOPRAZOLE 40 MG/10 ML VIAL IV SCH (10:31)
[2018-01-10] MEDS: MULTIPLE VITAMINS W/ MINERALS TAB PO SCH (10:31)
[2018-01-10] MEDS: ASCORBIC ACID 500 MG TAB PO SCH ×2 (10:31→22:51)
[2018-01-10] MEDS: SODIUM CHLOR 0.9% PF (SALINE LOCK) 10ML VIAL/SYR IV SCH ×2 (10:31→22:50)
[2018-01-10] MEDS: PRO-STAT 64 30ML PO SCH ×2 (10:31→22:51)
[2018-01-10 13:00] VITALS: BP 162/84
[2018-01-10 17:00] VITALS: BP 160/80
[2018-01-10] MEDS: VANCOMYCIN 1,500 MG in D5W 5% 250 ML IV SCH (21:39)
[2018-01-10 22:00] VITALS: BP 108/56
[2018-01-11] MEDS: InsuLIN REG 1unit/0.01ml Soln (100units/ml) SC SCH ×4 (00:59→18:28)
[2018-01-11 05:01] VITALS: BP 106/54
[2018-01-11] MEDS: ACCU-CHEK COMFORT CURVE STRIP VI SCH ×4 (06:00→18:20)
[2018-01-11 06:07] LABS: Basophils # (auto) 0.1 uL; Basophils % (auto) 0.7 % (0.0-2.0); Eosinophils # (auto) 0.1 uL; Eosinophils % (auto) 0.9 % (0.0-7.0); Hematocrit 27.4 % (41.0-53.0); Lymphocytes # (auto) 1.9 uL; Lymphocytes % (auto) 18.6 % (10.0-50.0); Mean Corpuscular Hemoglobin 29.5 pg (28.0-32.0); Mean Corpuscular Hgb Conc. 32.7 g/dL (32.0-36.0); Mean Corpuscular Volume 90.2 fL (80.0-100.0); Monocytes # (auto) 0.8 uL; Monocytes % (auto) 8.2 % (0.0-12.0); Neutrophils # (auto) 7.3 uL; Neutrophils % (auto) 71.6 % (37.0-80.0); Nucleated Red Blood Cells % 0.1 %; Platelet Count (auto) 301 10^3/uL (140-450); Red Blood Cells 3.04 10^6/uL (4.5-5.90); Red Cell Distribution Width 14.6 % (11.8-14.3); White Blood Cell 10.1 10^3/uL (4.4-10.8)
[2018-01-11 06:26] LABS: BUN/Creatinine Ratio 29.4; Calcium 8.4 mg/dL (8.5-10.1)
[2018-01-11] MEDS: LACTULOSE 20Gm/30ML SOLN PO SCH ×4 (06:46→23:09)
[2018-01-11] MEDS: MEROPENEM 1gm/20ml IVPUSH 20 ML IV SCH ×3 (06:47→23:10)
[2018-01-11 07:43] VITALS: BP 140/69
[2018-01-11 08:00] VITALS: BP 140/69
[2018-01-11] MEDS: SODIUM CHLOR 0.9% PF (SALINE LOCK) 10ML VIAL/SYR IV SCH ×2 (10:00→23:08)
[2018-01-11] MEDS: PRO-STAT 64 30ML PO SCH ×2 (10:00→22:00)
[2018-01-11] MEDS: D5W/SOD CHL 0.2% 1,000 ML IV SCH ×2 (10:32→18:21)
[2018-01-11] MEDS: ENOXAPARIN SOD 40 MG/0.4 ML SYRINGE SC SCH (10:33)
[2018-01-11] MEDS: MULTIPLE VITAMINS W/ MINERALS TAB PO SCH (10:33)
[2018-01-11] MEDS: LISINOPRIL 10 MG TAB PO SCH (10:33)
[2018-01-11] MEDS: ASCORBIC ACID 500 MG TAB PO SCH ×2 (10:34→23:10)
[2018-01-11] MEDS: PANTOPRAZOLE 40 MG/10 ML VIAL IV SCH (10:35)
[2018-01-11] MEDS: POTASSIUM CHL 10% (20 MEQ/15ML) 15ml ORAL SOLN GT SCH ×2 (10:36→23:08)
[2018-01-11 12:17] VITALS: BP 142/67
[2018-01-11] MEDS: HYDROcodone-ACET 10/325MG TAB PO PRN (13:10)
[2018-01-11] MEDS ORDERED: MORPHINE SULF(PF) 0.5MG/ML 10ML VIAL IV PRN (14:30)
[2018-01-11] MEDS ORDERED: VANCOMYCIN PER PHARMACY 0 MG IV SCH (14:30)
[2018-01-11 16:48] VITALS: BP 106/53
[2018-01-11] MEDS: VANCOMYCIN 1,500 MG in D5W 5% 250 ML IV SCH (21:22)
[2018-01-11 22:00] VITALS: BP 145/75
[2018-01-11] MEDS: ATORVASTATIN 20 MG TAB PO SCH (23:09)
[2018-01-12] VITALS (79 sets, daily range): BP systolic 66–177; BP diastolic 29–88
[2018-01-12] MEDS: ACCU-CHEK COMFORT CURVE STRIP VI SCH ×5 (00:36→23:32)
[2018-01-12] MEDS: InsuLIN REG 1unit/0.01ml Soln (100units/ml) SC SCH ×5 (00:36→23:31)
[2018-01-12] MEDS ORDERED: ETOMIDATE (2MG/ML) 20ML VIAL IV ONE ×3 (05:28→07:49)
[2018-01-12] MEDS ORDERED: SUCCINYLCHOLINE CHLORIDE 20 MG/ML 10ML VIAL IV ONE ×3 (05:28→07:50)
[2018-01-12] MEDS ORDERED: PROPOFOL 100 ML IV ONE (05:44)
[2018-01-12] MEDS ORDERED: MIDAZOLAM DRIP 50 mg/50mL 50 ML IV ONE (07:40)
[2018-01-12] MEDS: MIDAZOLAM DRIP 50 mg/50mL 50 ML IV SCH ×3 (07:41→22:16)
[2018-01-12] MEDS: PROPOFOL 100 ML IV SCH ×2 (07:41→12:52)
[2018-01-12] MEDS ORDERED: ROCURONIUM 10MG/ML 10ML VIAL IV ONE (07:49)
[2018-01-12] MEDS ORDERED: NOREPINEPHRINE 8 MG/250ML KIT 250 ML IV ONE (08:34)
[2018-01-12] MEDS ORDERED: PHENYLEPHRINE INJ 20 MG in SODIUM CHL 0.9% 250 ML IV SCH (08:40)
[2018-01-12] MEDS: NOREPINEPHRINE 8 MG/250ML KIT 250 ML IV SCH (08:40)
[2018-01-12] MEDS: LACTULOSE 20Gm/30ML SOLN PO SCH (09:14)
[2018-01-12] MEDS: PHENYLEPHRINE INJ 20 MG in D5W 5% 250 ML IV SCH ×2 (09:15→17:35)
[2018-01-12] MEDS: MEROPENEM 1gm/20ml IVPUSH 20 ML IV SCH ×3 (09:15→23:02)
[2018-01-12] MEDS: PANTOPRAZOLE 40 MG/10 ML VIAL IV SCH ×2 (09:40→10:48)
[2018-01-12] MEDS: SODIUM CHLOR 0.9% PF (SALINE LOCK) 10ML VIAL/SYR IV SCH ×2 (09:41→21:36)
[2018-01-12] MEDS: MULTIPLE VITAMINS W/ MINERALS TAB PO SCH (09:41)
[2018-01-12] MEDS: LISINOPRIL 10 MG TAB PO SCH (09:41)
[2018-01-12] MEDS: PRO-STAT 64 30ML PO SCH ×2 (10:00→22:00)
[2018-01-12] MEDS ORDERED: ASPirin 81 mg TAB PO SCH (10:00)
[2018-01-12] MEDS ORDERED: ENOXAPARIN SOD 40 MG/0.4 ML SYRINGE SC SCH (10:00)
[2018-01-12] MEDS ORDERED: KETOROLAC TROMETH 30 MG/ML 1ML VIAL IV PRN (10:00)
[2018-01-12] MEDS ORDERED: GASTROGRAFIN 30 ML SOL ONE (10:01)
[2018-01-12] MEDS ORDERED: KETOROLAC TROMETH 30 MG/ML 1ML VIAL ONE (10:03)
[2018-01-12] MEDS ORDERED: TPN PER PHARMACY 0 ML IV SCH (10:30)
[2018-01-12] MEDS ORDERED: ONDANSETRON HCL 4 MG/2 ML VIAL IV PRN (10:30)
[2018-01-12] MEDS ORDERED: NITROGLYCERIN 0.4 MG SL TAB SL PRN (10:30)
[2018-01-12] MEDS ORDERED: DEXTROSE (50%) 50ML SYRG IV PRN (10:30)
[2018-01-12] MEDS: D5W/SOD CHL 0.2% 1,000 ML IV SCH ×2 (10:47→12:00)
[2018-01-12 11:39] LABS: Basophils # (auto) 0.1 uL; Eosinophils # (auto) 0.1 uL; Hemoglobin 7.6 g/dL (13.5-17.5); Lymphocytes # (auto) 1.7 uL; Monocytes # (auto) 1.3 uL
[2018-01-12 11:40] LABS: Basophils % (auto) 0.7 % (0.0-2.0); Eosinophils % (auto) 0.6 % (0.0-7.0); Hematocrit 22.9 % (41.0-53.0); Lymphocytes % (auto) 12.4 % (10.0-50.0); Mean Corpuscular Hemoglobin 29.4 pg (28.0-32.0); Mean Corpuscular Hgb Conc. 33.2 g/dL (32.0-36.0); Mean Corpuscular Volume 88.6 fL (80.0-100.0); Monocytes % (auto) 9.8 % (0.0-12.0); Neutrophils # (auto) 10.4 uL; Neutrophils % (auto) 76.5 % (37.0-80.0); Nucleated Red Blood Cells % 0.1 %; Platelet Count (auto) 350 10^3/uL (140-450); Red Blood Cells 2.58 10^6/uL (4.5-5.90); Red Cell Distribution Width 14.9 % (11.8-14.3); White Blood Cell 13.6 10^3/uL (4.4-10.8)
[2018-01-12 12:01] LABS: Alanine Aminotransferase 60 U/L (16-61); Albumin 1.7 g/dL (3.4-5.0); Alkaline Phosphatase 82 U/L (45-117); Anion Gap 9 (5-15); Aspartate Aminotransferase 41 U/L (15-37); BUN/Creatinine Ratio 27.3; Bilirubin, Total 0.5 mg/dL (0.2-1.0); Blood Urea Nitrogen 33 mg/dL (7-18); Calcium 8.3 mg/dL (8.5-10.1); Carbon Dioxide 27 mmol/L (21-32); Chloride 97 mmol/L (98-107); GFR African American 75 mL/min; GFR Non-African American 62 mL/min; Glucose 262 mg/dL (74-106); Phosphorus 2.5 mg/dL (2.5-4.90); Potassium 3.9 mmol/L (3.5-5.1); Pre Albumin 21.8 mg/dL (20.0-40.0); Sodium 133 mmol/L (136-145); Triglycerides 490 mg/dL (< 150)
[2018-01-12] MEDS: LACTULOSE 20Gm/30ML SOLN PEG SCH ×3 (12:34→21:35)
[2018-01-12] MEDS: ASCORBIC ACID 500 MG TAB PO SCH ×2 (12:35→21:35)
[2018-01-12] MEDS: METOCLOPRAMIDE HCL 5MG/ml INJ 2ml VIAL IV SCH ×2 (14:27→21:35)
[2018-01-12] MEDS ORDERED: DEXTROSE (50%) 50ML SYRG IV SCH (20:00)
[2018-01-12] MEDS ORDERED: TPN PER PHARMACY IV NR ×9 (20:00)
[2018-01-12] MEDS: ATORVASTATIN 20 MG TAB PO SCH (21:35)
[2018-01-13] VITALS (105 sets, daily range): BP systolic 91–130; BP diastolic 41–83
[2018-01-13] MEDS: D5W/SOD CHL 0.2% 1,000 ML IV SCH (00:20)
[2018-01-13] MEDS: PROPOFOL 100 ML IV SCH ×2 (00:40→22:00)
[2018-01-13] MEDS: NOREPINEPHRINE 8 MG/250ML KIT 250 ML IV SCH (00:41)
[2018-01-13] MEDS: VANCOMYCIN 1,500 MG in D5W 5% 250 ML IV SCH ×2 (00:54→21:19)
[2018-01-13] MEDS: PHENYLEPHRINE INJ 20 MG in D5W 5% 250 ML IV SCH ×3 (01:55→17:15)
[2018-01-13 04:02] LABS: Basophils % (auto) 0.4 % (0.0-2.0); Eosinophils # (auto) 0.1 uL; Eosinophils % (auto) 0.5 % (0.0-7.0); Lymphocytes # (auto) 1.6 uL; Mean Corpuscular Volume 89.1 fL (80.0-100.0); Neutrophils # (auto) 8.8 uL; White Blood Cell 11.5 10^3/uL (4.4-10.8)
[2018-01-13 04:04] LABS: Basophils # (auto) 0.1 uL; Lymphocytes % (auto) 14.4 % (10.0-50.0); Mean Corpuscular Hemoglobin 28.7 pg (28.0-32.0); Mean Corpuscular Hgb Conc. 32.2 g/dL (32.0-36.0); Monocytes # (auto) 0.9 uL; Neutrophils % (auto) 76.7 % (37.0-80.0); Platelet Count (auto) 288 10^3/uL (140-450); Red Blood Cells 2.36 10^6/uL (4.5-5.90); Red Cell Distribution Width 14.7 % (11.8-14.3)
[2018-01-13 04:18] LABS: Albumin 1.6 g/dL (3.4-5.0); BUN/Creatinine Ratio 28.6; Bilirubin, Total 0.3 mg/dL (0.2-1.0); Calcium 8.6 mg/dL (8.5-10.1); Magnesium 3.1 mg/dL (1.6-2.6); Phosphorus 4.6 mg/dL (2.5-4.90); Potassium 3.5 mmol/L (3.5-5.1); Total Protein 6.8 g/dL (6.4-8.2)
[2018-01-13 04:19] LABS: Hemoglobin 6.8 g/dL (13.5-17.5)
[2018-01-13] MEDS ORDERED: SODIUM CHLORIDE 0.9% 1,000 ML IV SCH (05:00)
[2018-01-13] MEDS: METOCLOPRAMIDE HCL 5MG/ml INJ 2ml VIAL IV SCH ×3 (05:42→22:00)
[2018-01-13] MEDS: LACTULOSE 20Gm/30ML SOLN PEG SCH ×4 (05:43→22:00)
[2018-01-13] MEDS: InsuLIN REG 1unit/0.01ml Soln (100units/ml) SC SCH ×3 (05:43→17:56)
[2018-01-13] MEDS: ACCU-CHEK COMFORT CURVE STRIP VI SCH ×3 (05:43→17:55)
[2018-01-13] MEDS: MEROPENEM 1gm/20ml IVPUSH 20 ML IV SCH ×3 (06:36→22:48)
[2018-01-13] MEDS: MIDAZOLAM DRIP 50 mg/50mL 50 ML IV SCH (06:54)
[2018-01-13] MEDS: PRO-STAT 64 30ML PO SCH ×2 (07:35→22:00)
[2018-01-13] MEDS: ASCORBIC ACID 500 MG TAB PO SCH ×2 (10:00→22:00)
[2018-01-13] MEDS: PANTOPRAZOLE 40 MG/10 ML VIAL IV SCH (10:54)
[2018-01-13] MEDS: SODIUM CHLOR 0.9% PF (SALINE LOCK) 10ML VIAL/SYR IV SCH ×2 (10:55→22:00)
[2018-01-13] MEDS ORDERED: MICAFUNGIN SODIUM 100 MG in SODIUM CHL 0.9% 100 ML IV ONE (16:45)
[2018-01-13] MEDS ORDERED: MAGNESIUM CITRATE SOLUTION 300 ML BTL PO ONE (16:45)
[2018-01-13] MEDS: SODIUM CHLORIDE 0.9% 1,000 ML IV SCH (16:45)
[2018-01-13] MEDS ORDERED: MICAFUNGIN SODIUM 100 MG in D5W 5% 100 ML IV ONE (18:00)
[2018-01-13] MEDS: TPN PER PHARMACY IV NR ×9 (19:48)
[2018-01-13] MEDS ORDERED: TPN PER PHARMACY IV NR ×11 (20:00)
[2018-01-13] MEDS: ATORVASTATIN 20 MG TAB PO SCH (22:00)
[2018-01-14] VITALS (101 sets, daily range): BP systolic 118–163; BP diastolic 55–87
[2018-01-14] MEDS: SODIUM CHLORIDE 0.9% 1,000 ML IV SCH (00:30)
[2018-01-14] MEDS: MIDAZOLAM DRIP 50 mg/50mL 50 ML IV SCH (00:30)
[2018-01-14] MEDS: PHENYLEPHRINE INJ 20 MG in D5W 5% 250 ML IV SCH ×2 (02:55→09:21)
[2018-01-14 04:11] LABS: Calcium 8.2 mg/dL (8.5-10.1); Potassium 4.4 mmol/L (3.5-5.1)
[2018-01-14 04:14] LABS: Albumin 1.5 g/dL (3.4-5.0); Magnesium 2.7 mg/dL (1.6-2.6)
[2018-01-14 04:23] LABS: Bilirubin, Total 0.2 mg/dL (0.2-1.0); Total Protein 6.8 g/dL (6.4-8.2)
[2018-01-14 04:44] LABS: BUN/Creatinine Ratio 29.1; Phosphorus 3.6 mg/dL (2.5-4.90)
[2018-01-14] MEDS: ACCU-CHEK COMFORT CURVE STRIP VI SCH ×4 (05:48→18:03)
[2018-01-14] MEDS: METOCLOPRAMIDE HCL 5MG/ml INJ 2ml VIAL IV SCH ×3 (05:48→22:36)
[2018-01-14] MEDS: LACTULOSE 20Gm/30ML SOLN PEG SCH ×4 (05:48→22:37)
[2018-01-14] MEDS: InsuLIN REG 1unit/0.01ml Soln (100units/ml) SC SCH ×4 (05:58→18:04)
[2018-01-14] MEDS: MEROPENEM 1gm/20ml IVPUSH 20 ML IV SCH ×3 (06:11→22:36)
[2018-01-14 07:09] LABS: Basophils # (auto) 0.1 uL; Basophils % (auto) 0.8 % (0.0-2.0); Eosinophils # (auto) 0.3 uL; Eosinophils % (auto) 2.9 % (0.0-7.0); Hematocrit 28.7 % (41.0-53.0); Hemoglobin 9.6 g/dL (13.5-17.5); Lymphocytes # (auto) 1.3 uL; Lymphocytes % (auto) 14.5 % (10.0-50.0); Mean Corpuscular Hemoglobin 29.6 pg (28.0-32.0); Mean Corpuscular Hgb Conc. 33.5 g/dL (32.0-36.0); Mean Corpuscular Volume 88.4 fL (80.0-100.0); Monocytes % (auto) 10.4 % (0.0-12.0); Neutrophils # (auto) 6.5 uL; Neutrophils % (auto) 71.4 % (37.0-80.0); Nucleated Red Blood Cells % 0.1 %; Platelet Count (auto) 312 10^3/uL (140-450); Red Blood Cells 3.24 10^6/uL (4.5-5.90); Red Cell Distribution Width 14.8 % (11.8-14.3); White Blood Cell 9.1 10^3/uL (4.4-10.8)
[2018-01-14] MEDS: NOREPINEPHRINE 8 MG/250ML KIT 250 ML IV SCH (07:16)
[2018-01-14] MEDS ORDERED: ARTIFICIAL TEARS 15ml EACHEYE PRN (08:00)
[2018-01-14] MEDS: PANTOPRAZOLE 40 MG/10 ML VIAL IV SCH (09:20)
[2018-01-14] MEDS: MICAFUNGIN SODIUM 100 MG in D5W 5% 100 ML IV SCH (09:20)
[2018-01-14] MEDS: PRO-STAT 64 30ML PO SCH (09:21)
[2018-01-14] MEDS: ASCORBIC ACID 500 MG TAB PO SCH ×2 (09:21→22:36)
[2018-01-14] MEDS: SODIUM CHLOR 0.9% PF (SALINE LOCK) 10ML VIAL/SYR IV SCH ×2 (09:21→23:00)
[2018-01-14] MEDS ORDERED: POTASSIUM ACETATE IV NR ×8 (20:00)
[2018-01-14] MEDS ORDERED: POTASSIUM CHLORIDE IV NR ×8 (20:00)
[2018-01-14] MEDS ORDERED: SODIUM ACETATE IV NR ×8 (20:00)
[2018-01-14] MEDS ORDERED: [UNRECOGNIZED DRUG - OTHER] IV NR ×8 (20:00)
[2018-01-14] MEDS: TPN PER PHARMACY IV NR ×9 (22:35)
[2018-01-14] MEDS: ATORVASTATIN 20 MG TAB PO SCH (22:37)
[2018-01-15] VITALS (100 sets, daily range): BP systolic 116–188; BP diastolic 58–95
[2018-01-15] MEDS: PHENYLEPHRINE INJ 20 MG in D5W 5% 250 ML IV SCH ×4 (01:12→20:35)
[2018-01-15] MEDS: ACCU-CHEK COMFORT CURVE STRIP VI SCH ×4 (01:13→18:15)
[2018-01-15] MEDS: PRO-STAT 64 30ML PO SCH ×3 (01:13→22:00)
[2018-01-15] MEDS: InsuLIN REG 1unit/0.01ml Soln (100units/ml) SC SCH ×4 (01:14→18:16)
[2018-01-15 03:47] LABS: Basophils # (auto) 0 uL; Basophils % (auto) 0.5 % (0.0-2.0); Eosinophils # (auto) 0.2 uL; Eosinophils % (auto) 2.5 % (0.0-7.0); Hematocrit 29.3 % (41.0-53.0); Hemoglobin 9.6 g/dL (13.5-17.5); Lymphocytes # (auto) 1.7 uL; Lymphocytes % (auto) 19.4 % (10.0-50.0); Mean Corpuscular Hemoglobin 29.1 pg (28.0-32.0); Mean Corpuscular Hgb Conc. 32.8 g/dL (32.0-36.0); Mean Corpuscular Volume 88.5 fL (80.0-100.0); Monocytes % (auto) 11.6 % (0.0-12.0); Neutrophils # (auto) 5.9 uL; Platelet Count (auto) 310 10^3/uL (140-450); Red Blood Cells 3.31 10^6/uL (4.5-5.90); Red Cell Distribution Width 14.9 % (11.8-14.3); White Blood Cell 8.9 10^3/uL (4.4-10.8)
[2018-01-15 05:10] LABS: Albumin 1.7 g/dL (3.4-5.0); BUN/Creatinine Ratio 27.6; Bilirubin, Total 0.2 mg/dL (0.2-1.0); Calcium 8.5 mg/dL (8.5-10.1); Magnesium 2.7 mg/dL (1.6-2.6); Phosphorus 1.6 mg/dL (2.5-4.90); Potassium 3.9 mmol/L (3.5-5.1); Total Protein 7.2 g/dL (6.4-8.2)
[2018-01-15] MEDS: LACTULOSE 20Gm/30ML SOLN PEG SCH ×4 (06:00→22:00)
[2018-01-15] MEDS: METOCLOPRAMIDE HCL 5MG/ml INJ 2ml VIAL IV SCH ×3 (06:05→22:00)
[2018-01-15] MEDS: MEROPENEM 1gm/20ml IVPUSH 20 ML IV SCH ×3 (06:11→23:18)
[2018-01-15] MEDS: MIDAZOLAM DRIP 50 mg/50mL 50 ML IV SCH (07:41)
[2018-01-15] MEDS: PROPOFOL 100 ML IV SCH (07:41)
[2018-01-15] MEDS: NOREPINEPHRINE 8 MG/250ML KIT 250 ML IV SCH (08:40)
[2018-01-15] MEDS ORDERED: SODIUM PHOSP 20MEQ(15MMOL) IN NS 100 ML IV ONE (09:30)
[2018-01-15] MEDS: SODIUM CHLORIDE 0.9% 1,000 ML IV SCH (10:00)
[2018-01-15] MEDS: PANTOPRAZOLE 40 MG/10 ML VIAL IV SCH (10:32)
[2018-01-15] MEDS: MICAFUNGIN SODIUM 100 MG in D5W 5% 100 ML IV SCH (10:48)
[2018-01-15] MEDS: ASCORBIC ACID 500 MG TAB PO SCH ×2 (10:49→20:16)
[2018-01-15] MEDS: SODIUM CHLOR 0.9% PF (SALINE LOCK) 10ML VIAL/SYR IV SCH ×2 (10:50→22:00)
[2018-01-15] MEDS ORDERED: LABETALOL HCL 5 MG/ML ML 20ML VIAL IV PRN ×2 (12:30)
[2018-01-15] MEDS ORDERED: LABETALOL HCL 5 MG/ML ML 20ML VIAL IV ONE ×2 (12:30)
[2018-01-15] MEDS: ISOSORBIDE DINITRATE 10 MG TAB PEG SCH ×2 (14:41→18:00)
[2018-01-15] MEDS: LISINOPRIL 20 MG TAB PO SCH (14:45)
[2018-01-15] MEDS: POTASSIUM PHOSPHATE IV SCH ×7 (20:05)
[2018-01-15] MEDS: [UNRECOGNIZED DRUG - OTHER] IV SCH ×7 (20:05)
[2018-01-15] MEDS: POTASSIUM ACETATE IV SCH ×7 (20:05)
[2018-01-15] MEDS: MULTIPLE VITAMIN IV SCH ×7 (20:05)
[2018-01-15] MEDS: ATORVASTATIN 20 MG TAB PO SCH (20:16)
[2018-01-15] MEDS: CARVEDILOL 12.5 MG TAB PEG SCH (20:16)
[2018-01-16] VITALS (61 sets, daily range): BP systolic 113–182; BP diastolic 62–103
[2018-01-16] MEDS: ACCU-CHEK COMFORT CURVE STRIP VI SCH ×5 (00:24→23:55)
[2018-01-16] MEDS: InsuLIN REG 1unit/0.01ml Soln (100units/ml) SC SCH ×5 (00:24→23:59)
[2018-01-16 03:45] LABS: Basophils # (auto) 0.1 uL; Basophils % (auto) 0.8 % (0.0-2.0); Eosinophils # (auto) 0.1 uL; Eosinophils % (auto) 1.8 % (0.0-7.0); Hematocrit 27.5 % (41.0-53.0); Lymphocytes # (auto) 1.5 uL; Lymphocytes % (auto) 18.2 % (10.0-50.0); Mean Corpuscular Hemoglobin 29.2 pg (28.0-32.0); Mean Corpuscular Hgb Conc. 32.7 g/dL (32.0-36.0); Mean Corpuscular Volume 89.3 fL (80.0-100.0); Monocytes # (auto) 0.8 uL; Monocytes % (auto) 9.7 % (0.0-12.0); Neutrophils # (auto) 5.6 uL; Neutrophils % (auto) 69.5 % (37.0-80.0); Platelet Count (auto) 300 10^3/uL (140-450); Red Blood Cells 3.09 10^6/uL (4.5-5.90); Red Cell Distribution Width 14.5 % (11.8-14.3)
[2018-01-16 04:03] LABS: Albumin 1.6 g/dL (3.4-5.0); BUN/Creatinine Ratio 30.1; Bilirubin, Total 0.2 mg/dL (0.2-1.0); Calcium 8.3 mg/dL (8.5-10.1); Magnesium 2.3 mg/dL (1.6-2.6); Phosphorus 3.1 mg/dL (2.5-4.90); Potassium 4.2 mmol/L (3.5-5.1)
[2018-01-16] MEDS: PHENYLEPHRINE INJ 20 MG in D5W 5% 250 ML IV SCH ×3 (04:55→20:57)
[2018-01-16] MEDS: LACTULOSE 20Gm/30ML SOLN PEG SCH ×4 (06:00→23:53)
[2018-01-16] MEDS: METOCLOPRAMIDE HCL 5MG/ml INJ 2ml VIAL IV SCH ×3 (06:48→23:53)
[2018-01-16] MEDS: ISOSORBIDE DINITRATE 10 MG TAB PEG SCH ×3 (06:48→18:13)
[2018-01-16] MEDS: MIDAZOLAM DRIP 50 mg/50mL 50 ML IV SCH (07:41)
[2018-01-16] MEDS: PROPOFOL 100 ML IV SCH (07:41)
[2018-01-16] MEDS: MEROPENEM 1gm/20ml IVPUSH 20 ML IV SCH ×3 (07:44→23:55)
[2018-01-16] MEDS: NOREPINEPHRINE 8 MG/250ML KIT 250 ML IV SCH (08:40)
[2018-01-16] MEDS: PRO-STAT 64 30ML PO SCH ×2 (10:00→22:00)
[2018-01-16] MEDS: LISINOPRIL 20 MG TAB PO SCH (10:35)
[2018-01-16] MEDS: CARVEDILOL 12.5 MG TAB PEG SCH ×2 (10:35→23:54)
[2018-01-16] MEDS: ASCORBIC ACID 500 MG TAB PO SCH ×2 (10:35→23:54)
[2018-01-16] MEDS: PANTOPRAZOLE 40 MG/10 ML VIAL IV SCH (10:36)
[2018-01-16] MEDS: SODIUM CHLOR 0.9% PF (SALINE LOCK) 10ML VIAL/SYR IV SCH ×2 (10:36→23:53)
[2018-01-16] MEDS: MICAFUNGIN SODIUM 100 MG in D5W 5% 100 ML IV SCH (11:00)
[2018-01-16] MEDS: SODIUM CHLORIDE 0.9% 1,000 ML IV SCH (16:46)
[2018-01-16] MEDS: MULTIPLE VITAMIN IV SCH ×7 (20:00)
[2018-01-16] MEDS: POTASSIUM PHOSPHATE IV SCH ×7 (20:00)
[2018-01-16] MEDS: [UNRECOGNIZED DRUG - OTHER] IV SCH ×7 (20:00)
[2018-01-16] MEDS: POTASSIUM ACETATE IV SCH ×7 (20:00)
[2018-01-16] MEDS ORDERED: TPN PER PHARMACY IV NR ×8 (20:00)
[2018-01-16] MEDS: ATORVASTATIN 20 MG TAB PO SCH (23:53)
[2018-01-17] MEDS: PHENYLEPHRINE INJ 20 MG in D5W 5% 250 ML IV SCH (04:54)
[2018-01-17] MEDS: InsuLIN REG 1unit/0.01ml Soln (100units/ml) SC SCH ×3 (06:00→18:30)
[2018-01-17 06:11] VITALS: BP 123/69
[2018-01-17 06:12] LABS: Albumin 1.6 g/dL (3.4-5.0); BUN/Creatinine Ratio 36.8; Bilirubin, Total 0.3 mg/dL (0.2-1.0); Calcium 8.4 mg/dL (8.5-10.1); Magnesium 2.3 mg/dL (1.6-2.6); Phosphorus 2.1 mg/dL (2.5-4.90); Potassium 3.9 mmol/L (3.5-5.1); Total Protein 6.8 g/dL (6.4-8.2)
[2018-01-17] MEDS: METOCLOPRAMIDE HCL 5MG/ml INJ 2ml VIAL IV SCH ×3 (07:40→22:34)
[2018-01-17] MEDS: ACCU-CHEK COMFORT CURVE STRIP VI SCH ×3 (07:40→18:00)
[2018-01-17] MEDS: LACTULOSE 20Gm/30ML SOLN PEG SCH ×4 (07:40→22:33)
[2018-01-17] MEDS: PROPOFOL 100 ML IV SCH (07:41)
[2018-01-17] MEDS: MIDAZOLAM DRIP 50 mg/50mL 50 ML IV SCH (07:41)
[2018-01-17] MEDS: MEROPENEM 1gm/20ml IVPUSH 20 ML IV SCH ×3 (07:41→22:50)
[2018-01-17] MEDS: ISOSORBIDE DINITRATE 10 MG TAB PEG SCH ×3 (07:41→18:34)
[2018-01-17] MEDS: NOREPINEPHRINE 8 MG/250ML KIT 250 ML IV SCH (08:40)
[2018-01-17 08:44] VITALS: BP 139/72
[2018-01-17] MEDS: PRO-STAT 64 30ML PO SCH ×2 (10:00→22:00)
[2018-01-17] MEDS ORDERED: VANCOMYCIN 1GM/250ML 250 ML IV SCH (11:00)
[2018-01-17] MEDS: PANTOPRAZOLE 40 MG/10 ML VIAL IV SCH (11:17)
[2018-01-17] MEDS: SODIUM CHLOR 0.9% PF (SALINE LOCK) 10ML VIAL/SYR IV SCH ×2 (11:17→22:33)
[2018-01-17] MEDS: ASCORBIC ACID 500 MG TAB PO SCH ×2 (11:18→22:33)
[2018-01-17] MEDS: MICAFUNGIN SODIUM 100 MG in D5W 5% 100 ML IV SCH (11:18)
[2018-01-17] MEDS: CARVEDILOL 12.5 MG TAB PEG SCH ×2 (11:20→22:00)
[2018-01-17] MEDS: LISINOPRIL 20 MG TAB PO SCH (11:21)
[2018-01-17 13:00] VITALS: BP 105/55
[2018-01-17 17:00] VITALS: BP 149/79
[2018-01-17] MEDS: SODIUM CHLORIDE 0.9% 1,000 ML IV SCH (17:30)
[2018-01-17] MEDS: HYDROcodone-ACET 10/325MG TAB PO PRN (18:32)
[2018-01-17] MEDS ORDERED: TPN PER PHARMACY IV NR ×10 (20:00)
[2018-01-17 22:00] VITALS: BP_SYST 132; BP_SYST 96; BP_DIAS 51; BP_DIAS 79
[2018-01-17] MEDS: ATORVASTATIN 20 MG TAB PO SCH (22:33)
[2018-01-18 05:00] VITALS: BP 131/63
[2018-01-18] MEDS: InsuLIN REG 1unit/0.01ml Soln (100units/ml) SC SCH ×4 (06:00→17:43)
[2018-01-18 06:20] LABS: Albumin 1.7 g/dL (3.4-5.0); BUN/Creatinine Ratio 33.3; Bilirubin, Total 0.3 mg/dL (0.2-1.0); Calcium 8.5 mg/dL (8.5-10.1); Magnesium 2.5 mg/dL (1.6-2.6); Phosphorus 3.1 mg/dL (2.5-4.90); Potassium 3.8 mmol/L (3.5-5.1); Total Protein 7.2 g/dL (6.4-8.2)
[2018-01-18] MEDS: LACTULOSE 20Gm/30ML SOLN PEG SCH ×4 (06:25→22:27)
[2018-01-18] MEDS: ACCU-CHEK COMFORT CURVE STRIP VI SCH ×4 (06:25→17:26)
[2018-01-18] MEDS: ISOSORBIDE DINITRATE 10 MG TAB PEG SCH ×3 (06:29→17:25)
[2018-01-18] MEDS: METOCLOPRAMIDE HCL 5MG/ml INJ 2ml VIAL IV SCH ×3 (06:30→22:28)
[2018-01-18] MEDS: MEROPENEM 1gm/20ml IVPUSH 20 ML IV SCH ×3 (06:30→22:32)
[2018-01-18 09:00] VITALS: BP 159/96
[2018-01-18] MEDS: MICAFUNGIN SODIUM 100 MG in D5W 5% 100 ML IV SCH (10:39)
[2018-01-18] MEDS: PANTOPRAZOLE 40 MG/10 ML VIAL IV SCH (10:39)
[2018-01-18] MEDS: SODIUM CHLOR 0.9% PF (SALINE LOCK) 10ML VIAL/SYR IV SCH ×2 (10:40→22:28)
[2018-01-18] MEDS: ASCORBIC ACID 500 MG TAB PO SCH ×2 (10:41→22:28)
[2018-01-18] MEDS: PRO-STAT 64 30ML PO SCH ×2 (10:41→22:28)
[2018-01-18] MEDS: CARVEDILOL 12.5 MG TAB PEG SCH ×2 (10:41→22:28)
[2018-01-18] MEDS: LISINOPRIL 20 MG TAB PO SCH (10:42)
[2018-01-18 13:00] VITALS: BP 142/72
[2018-01-18 17:00] VITALS: BP 148/71
[2018-01-18] MEDS: VANCOMYCIN 750 MG in D5W 5% 250 ML IV SCH (17:23)
[2018-01-18] MEDS: SODIUM CHLORIDE 0.9% 1,000 ML IV SCH (17:24)
[2018-01-18] MEDS ORDERED: TPN PER PHARMACY IV NR ×9 (20:00)
[2018-01-18 21:30] VITALS: BP 126/76
[2018-01-18] MEDS: ATORVASTATIN 20 MG TAB PO SCH (22:27)
[2018-01-19] MEDS: ACCU-CHEK COMFORT CURVE STRIP VI SCH ×4 (00:25→18:07)
[2018-01-19] MEDS: InsuLIN REG 1unit/0.01ml Soln (100units/ml) SC SCH ×4 (00:29→18:00)
[2018-01-19 04:58] VITALS: BP 147/74
[2018-01-19 05:34] LABS: Basophils # (auto) 0.1 uL; Basophils % (auto) 0.8 % (0.0-2.0); Eosinophils # (auto) 0.1 uL; Eosinophils % (auto) 0.9 % (0.0-7.0); Hematocrit 29.1 % (41.0-53.0); Hemoglobin 9.6 g/dL (13.5-17.5); Lymphocytes % (auto) 21.6 % (10.0-50.0); Mean Corpuscular Hemoglobin 29.5 pg (28.0-32.0); Mean Corpuscular Hgb Conc. 33.2 g/dL (32.0-36.0); Mean Corpuscular Volume 88.8 fL (80.0-100.0); Monocytes # (auto) 1.4 uL; Monocytes % (auto) 15.7 % (0.0-12.0); Neutrophils # (auto) 5.5 uL; Nucleated Red Blood Cells % 0.1 %; Platelet Count (auto) 320 10^3/uL (140-450); Red Blood Cells 3.27 10^6/uL (4.5-5.90); Red Cell Distribution Width 15.1 % (11.8-14.3); White Blood Cell 9.1 10^3/uL (4.4-10.8)
[2018-01-19 05:52] LABS: Albumin 1.8 g/dL (3.4-5.0); BUN/Creatinine Ratio 34.1; Bilirubin, Total 0.2 mg/dL (0.2-1.0); Calcium 8.7 mg/dL (8.5-10.1); Magnesium 2.6 mg/dL (1.6-2.6); Phosphorus 2.8 mg/dL (2.5-4.90); Potassium 3.8 mmol/L (3.5-5.1); Pre Albumin 25.9 mg/dL (20.0-40.0); Total Protein 7.3 g/dL (6.4-8.2)
[2018-01-19] MEDS: METOCLOPRAMIDE HCL 5MG/ml INJ 2ml VIAL IV SCH ×3 (06:23→22:40)
[2018-01-19] MEDS: LACTULOSE 20Gm/30ML SOLN PEG SCH ×4 (06:23→22:40)
[2018-01-19] MEDS: ISOSORBIDE DINITRATE 10 MG TAB PEG SCH ×3 (06:28→18:07)
[2018-01-19] MEDS: MEROPENEM 1gm/20ml IVPUSH 20 ML IV SCH ×3 (06:38→22:42)
[2018-01-19 09:00] VITALS: BP 133/82
[2018-01-19] MEDS: PRO-STAT 64 30ML PO SCH ×2 (10:00→22:00)
[2018-01-19] MEDS: ASCORBIC ACID 500 MG TAB PO SCH ×2 (10:04→22:41)
[2018-01-19] MEDS: SODIUM CHLOR 0.9% PF (SALINE LOCK) 10ML VIAL/SYR IV SCH ×2 (10:05→22:40)
[2018-01-19] MEDS: PANTOPRAZOLE 40 MG/10 ML VIAL IV SCH (10:05)
[2018-01-19] MEDS: CARVEDILOL 12.5 MG TAB PEG SCH ×2 (10:06→22:42)
[2018-01-19] MEDS: MICAFUNGIN SODIUM 100 MG in D5W 5% 100 ML IV SCH (10:06)
[2018-01-19] MEDS: LISINOPRIL 20 MG TAB PO SCH (10:06)
[2018-01-19 13:00] VITALS: BP 112/64
[2018-01-19] MEDS: SODIUM CHLORIDE 0.9% 1,000 ML IV SCH (16:45)
[2018-01-19 17:00] VITALS: BP 131/71
[2018-01-19] MEDS: VANCOMYCIN 750 MG in D5W 5% 250 ML IV SCH (17:22)
[2018-01-19] MEDS: TPN PER PHARMACY IV NR ×8 (20:18)
[2018-01-19 22:12] VITALS: BP 156/75
[2018-01-19] MEDS: ATORVASTATIN 20 MG TAB PO SCH (22:41)
[2018-01-20] MEDS: TPN PER PHARMACY IV NR ×8 (01:25)
[2018-01-20] MEDS: ISOSORBIDE DINITRATE 10 MG TAB PEG SCH ×4 (05:40→14:27)
[2018-01-20] MEDS: InsuLIN REG 1unit/0.01ml Soln (100units/ml) SC SCH ×5 (06:00→23:29)
[2018-01-20 06:04] VITALS: BP 154/80
[2018-01-20 06:09] LABS: Basophils # (auto) 0.1 uL; Basophils % (auto) 0.7 % (0.0-2.0); Eosinophils # (auto) 0.3 uL; Eosinophils % (auto) 3.3 % (0.0-7.0); Hematocrit 29.2 % (41.0-53.0); Hemoglobin 9.6 g/dL (13.5-17.5); Lymphocytes # (auto) 1.8 uL; Lymphocytes % (auto) 18.8 % (10.0-50.0); Mean Corpuscular Hemoglobin 29.5 pg (28.0-32.0); Mean Corpuscular Volume 89.4 fL (80.0-100.0); Monocytes % (auto) 10.4 % (0.0-12.0); Neutrophils # (auto) 6.3 uL; Neutrophils % (auto) 66.8 % (37.0-80.0); Platelet Count (auto) 315 10^3/uL (140-450); Red Blood Cells 3.27 10^6/uL (4.5-5.90); Red Cell Distribution Width 14.9 % (11.8-14.3); White Blood Cell 9.4 10^3/uL (4.4-10.8)
[2018-01-20] MEDS: ACCU-CHEK COMFORT CURVE STRIP VI SCH ×5 (06:09→23:29)
[2018-01-20 06:25] LABS: Albumin 1.9 g/dL (3.4-5.0); BUN/Creatinine Ratio 30.6; Bilirubin, Total 0.3 mg/dL (0.2-1.0); Calcium 8.6 mg/dL (8.5-10.1); Magnesium 2.5 mg/dL (1.6-2.6); Phosphorus 2.9 mg/dL (2.5-4.90); Total Protein 7.2 g/dL (6.4-8.2)
[2018-01-20] MEDS: LACTULOSE 20Gm/30ML SOLN PEG SCH ×4 (06:25→23:30)
[2018-01-20] MEDS: METOCLOPRAMIDE HCL 5MG/ml INJ 2ml VIAL IV SCH ×3 (06:26→23:28)
[2018-01-20] MEDS: MEROPENEM 1gm/20ml IVPUSH 20 ML IV SCH ×3 (06:31→23:00)
[2018-01-20 08:54] VITALS: BP 138/76
[2018-01-20] MEDS: PANTOPRAZOLE 40 MG/10 ML VIAL IV SCH (09:54)
[2018-01-20] MEDS: CARVEDILOL 12.5 MG TAB PEG SCH ×2 (09:55→23:37)
[2018-01-20] MEDS: PRO-STAT 64 30ML PO SCH ×2 (09:55→22:00)
[2018-01-20] MEDS: LISINOPRIL 20 MG TAB PO SCH (09:55)
[2018-01-20] MEDS: ASCORBIC ACID 500 MG TAB PO SCH ×2 (09:55→23:36)
[2018-01-20] MEDS: SODIUM CHLOR 0.9% PF (SALINE LOCK) 10ML VIAL/SYR IV SCH ×2 (09:56→23:28)
[2018-01-20] MEDS: MICAFUNGIN SODIUM 100 MG in D5W 5% 100 ML IV SCH (09:57)
[2018-01-20 13:00] VITALS: BP 137/77
[2018-01-20] MEDS: SODIUM CHLORIDE 0.9% 1,000 ML IV SCH (16:45)
[2018-01-20 17:00] VITALS: BP 109/61
[2018-01-20] MEDS: VANCOMYCIN 750 MG in D5W 5% 250 ML IV SCH (17:35)
[2018-01-20] MEDS: POTASSIUM ACETATE IV NR ×8 (19:53)
[2018-01-20] MEDS: POTASSIUM PHOSPHATE IV NR ×8 (19:53)
[2018-01-20] MEDS: FAT EMULSION IV NR ×8 (19:53)
[2018-01-20] MEDS: [UNRECOGNIZED DRUG - OTHER] IV NR ×8 (19:53)
[2018-01-20 21:30] VITALS: BP_SYST 125; BP_SYST 166; BP_DIAS 69; BP_DIAS 85
[2018-01-20] MEDS: ATORVASTATIN 20 MG TAB PO SCH (23:36)
[2018-01-21 05:00] VITALS: BP 140/72
[2018-01-21] MEDS: LACTULOSE 20Gm/30ML SOLN PEG SCH ×4 (05:40→23:23)
[2018-01-21] MEDS: ACCU-CHEK COMFORT CURVE STRIP VI SCH ×3 (05:40→18:10)
[2018-01-21] MEDS: METOCLOPRAMIDE HCL 5MG/ml INJ 2ml VIAL IV SCH ×3 (05:40→23:22)
[2018-01-21] MEDS: ISOSORBIDE DINITRATE 10 MG TAB PEG SCH ×3 (05:40→18:10)
[2018-01-21] MEDS: InsuLIN REG 1unit/0.01ml Soln (100units/ml) SC SCH ×3 (05:56→18:00)
[2018-01-21] MEDS: MEROPENEM 1gm/20ml IVPUSH 20 ML IV SCH ×2 (06:11→15:57)
[2018-01-21 07:53] LABS: Basophils # (auto) 0.1 uL; Eosinophils # (auto) 0.4 uL; Eosinophils % (auto) 3.2 % (0.0-7.0); Hematocrit 28.8 % (41.0-53.0); Hemoglobin 9.4 g/dL (13.5-17.5); Lymphocytes # (auto) 2.1 uL; Lymphocytes % (auto) 18.5 % (10.0-50.0); Mean Corpuscular Hemoglobin 29.1 pg (28.0-32.0); Mean Corpuscular Hgb Conc. 32.7 g/dL (32.0-36.0); Mean Corpuscular Volume 89.1 fL (80.0-100.0); Monocytes # (auto) 1.1 uL; Monocytes % (auto) 9.1 % (0.0-12.0); Neutrophils # (auto) 7.9 uL; Neutrophils % (auto) 68.2 % (37.0-80.0); Nucleated Red Blood Cells % 0.2 %; Platelet Count (auto) 315 10^3/uL (140-450); Red Blood Cells 3.23 10^6/uL (4.5-5.90); Red Cell Distribution Width 15.3 % (11.8-14.3); White Blood Cell 11.6 10^3/uL (4.4-10.8)
[2018-01-21 08:03] LABS: Albumin 1.7 g/dL (3.4-5.0); Anion Gap 8 (5-15); Blood Urea Nitrogen 29 mg/dL (7-18); Calcium 8.2 mg/dL (8.5-10.1); Carbon Dioxide 25 mmol/L (21-32); Chloride 106 mmol/L (98-107); Glucose 88 mg/dL (74-106); Magnesium 2.2 mg/dL (1.6-2.6); Potassium 4.2 mmol/L (3.5-5.1); Sodium 139 mmol/L (136-145)
[2018-01-21 08:06] LABS: Alanine Aminotransferase 62 U/L (16-61); Aspartate Aminotransferase 44 U/L (15-37); BUN/Creatinine Ratio 27.6; GFR African American 88 mL/min; GFR Non-African American 73 mL/min
[2018-01-21 08:09] LABS: Alkaline Phosphatase 69 U/L (45-117); Bilirubin, Total 0.3 mg/dL (0.2-1.0); Total Protein 7.1 g/dL (6.4-8.2)
[2018-01-21 08:21] LABS: Phosphorus 2.9 mg/dL (2.5-4.90)
[2018-01-21 09:00] VITALS: BP 131/81
[2018-01-21] MEDS: PRO-STAT 64 30ML PO SCH ×2 (10:00→22:00)
[2018-01-21] MEDS: LISINOPRIL 20 MG TAB PO SCH (10:02)
[2018-01-21] MEDS: PANTOPRAZOLE 40 MG/10 ML VIAL IV SCH (10:02)
[2018-01-21] MEDS: ASCORBIC ACID 500 MG TAB PO SCH ×2 (10:02→23:20)
[2018-01-21] MEDS: MICAFUNGIN SODIUM 100 MG in D5W 5% 100 ML IV SCH (10:02)
[2018-01-21] MEDS: CARVEDILOL 12.5 MG TAB PEG SCH ×2 (10:03→23:22)
[2018-01-21] MEDS: SODIUM CHLOR 0.9% PF (SALINE LOCK) 10ML VIAL/SYR IV SCH (10:04)
[2018-01-21] MEDS: NALBUPHINE HCL 10 MG/1ml INJECTION IV PRN (10:06)
[2018-01-21 12:52] LABS: Magnesium 2.1 mg/dL (1.6-2.6); Phosphorus 6.2 mg/dL (2.5-4.90)
[2018-01-21 13:00] VITALS: BP 118/65
[2018-01-21] MEDS: SODIUM CHLORIDE 0.9% 1,000 ML IV SCH (16:45)
[2018-01-21 16:53] VITALS: BP 128/57
[2018-01-21 17:10] VITALS: BP 124/56
[2018-01-21] MEDS: VANCOMYCIN 750 MG in D5W 5% 250 ML IV SCH (17:27)
[2018-01-21] MEDS ORDERED: FAT EMULSION IV NR ×8 (20:00)
[2018-01-21] MEDS ORDERED: POTASSIUM PHOSPHATE IV NR ×8 (20:00)
[2018-01-21] MEDS ORDERED: POTASSIUM ACETATE IV NR ×8 (20:00)
[2018-01-21] MEDS ORDERED: [UNRECOGNIZED DRUG - OTHER] IV NR ×8 (20:00)
[2018-01-21] MEDS: POTASSIUM ACETATE IV NR ×8 (20:04)
[2018-01-21] MEDS: POTASSIUM PHOSPHATE IV NR ×8 (20:04)
[2018-01-21] MEDS: [UNRECOGNIZED DRUG - OTHER] IV NR ×8 (20:04)
[2018-01-21] MEDS: FAT EMULSION IV NR ×8 (20:04)
[2018-01-21 22:00] VITALS: BP 115/54
[2018-01-21] MEDS: ATORVASTATIN 20 MG TAB PO SCH (23:20)
[2018-01-22] MEDS: MEROPENEM 1gm/20ml IVPUSH 20 ML IV SCH ×4 (00:01→23:29)
[2018-01-22] MEDS: SODIUM CHLOR 0.9% PF (SALINE LOCK) 10ML VIAL/SYR IV SCH ×3 (00:03→21:49)
[2018-01-22 04:59] VITALS: BP 171/71
[2018-01-22] MEDS: InsuLIN REG 1unit/0.01ml Soln (100units/ml) SC SCH ×5 (05:45→23:50)
[2018-01-22] MEDS: LACTULOSE 20Gm/30ML SOLN PEG SCH ×4 (05:46→21:49)
[2018-01-22] MEDS: ACCU-CHEK COMFORT CURVE STRIP VI SCH ×5 (05:46→23:51)
[2018-01-22] MEDS: METOCLOPRAMIDE HCL 5MG/ml INJ 2ml VIAL IV SCH ×3 (05:47→21:49)
[2018-01-22] MEDS: ISOSORBIDE DINITRATE 10 MG TAB PEG SCH ×3 (05:47→18:05)
[2018-01-22 06:20] LABS: INR 1.17 (0.9-1.15); Partial Thromboplastin Time 26.1 sec (23.78-33.04); Prothrombin Time 12.4 sec (9.27-12.13)
[2018-01-22] MEDS ORDERED: NEOMYCIN-BACITRACIN-POLYM 15GM TOP OINT TOP ONE (06:45)
[2018-01-22] MEDS ORDERED: BUPIVACAINE 0.75% INJ 10ML MPV SDV IJ ONE ×2 (06:45→07:15)
[2018-01-22] MEDS ORDERED: ceFAZolin 1GM/50ML 50 ML IV ONE (07:21)
[2018-01-22] MEDS ORDERED: MIDAZOLAM HCL 1MG/1ML-2 ML VIAL ONE (07:25)
[2018-01-22] MEDS ORDERED: fentaNYL CITRATE 100 MCG/2 ML VL ONE (07:30)
[2018-01-22] MEDS ORDERED: ePHEDrine SULFATE 50 MG/ML AMP ONE (07:43)
[2018-01-22] MEDS ORDERED: ONDANSETRON HCL 4 MG/2 ML VIAL IV ONE (07:45)
[2018-01-22] MEDS ORDERED: ACCU-CHEK COMFORT CURVE STRIP VI ONE (07:45)
[2018-01-22] MEDS ORDERED: ceFAZolin 1GM VL ONE (07:45)
[2018-01-22 09:00] VITALS: BP 143/81
[2018-01-22] MEDS: PRO-STAT 64 30ML PO SCH ×2 (10:00→21:50)
[2018-01-22] MEDS ORDERED: fentaNYL CITRATE 100 MCG/2 ML VL IV ONE (10:00)
[2018-01-22 10:19] LABS: Anion Gap 8 (5-15); Carbon Dioxide 26 mmol/L (21-32); Chloride 104 mmol/L (98-107); Glucose 107 mg/dL (74-106); Potassium 4.1 mmol/L (3.5-5.1); Sodium 138 mmol/L (136-145)
[2018-01-22 10:20] LABS: Alanine Aminotransferase 66 U/L (16-61); Alkaline Phosphatase 75 U/L (45-117); Aspartate Aminotransferase 49 U/L (15-37); BUN/Creatinine Ratio 28.2; Bilirubin, Total 0.3 mg/dL (0.2-1.0); Blood Urea Nitrogen 31 mg/dL (7-18); Calcium 8.6 mg/dL (8.5-10.1); GFR African American 84 mL/min; GFR Non-African American 69 mL/min; Total Protein 7.4 g/dL (6.4-8.2)
[2018-01-22 10:21] LABS: Albumin 1.8 g/dL (3.4-5.0)
[2018-01-22] MEDS: MICAFUNGIN SODIUM 100 MG in D5W 5% 100 ML IV SCH (10:23)
[2018-01-22] MEDS: PANTOPRAZOLE 40 MG/10 ML VIAL IV SCH (10:23)
[2018-01-22] MEDS: CARVEDILOL 12.5 MG TAB PEG SCH ×2 (10:24→22:11)
[2018-01-22] MEDS: ASCORBIC ACID 500 MG TAB PO SCH ×2 (10:24→21:50)
[2018-01-22] MEDS: LISINOPRIL 20 MG TAB PO SCH (10:25)
[2018-01-22 13:00] VITALS: BP 132/68
[2018-01-22] MEDS: HYDROcodone-ACET 10/325MG TAB PO PRN ×2 (14:16→21:51)
[2018-01-22] MEDS: SODIUM CHLORIDE 0.9% 1,000 ML IV SCH (16:45)
[2018-01-22 17:00] VITALS: BP 144/86
[2018-01-22] MEDS: NALBUPHINE HCL 10 MG/1ml INJECTION IV PRN (17:10)
[2018-01-22] MEDS: VANCOMYCIN 750 MG in D5W 5% 250 ML IV SCH (18:04)
[2018-01-22] MEDS ORDERED: TPN PER PHARMACY IV NR ×10 (20:00)
[2018-01-22] MEDS: ATORVASTATIN 20 MG TAB PO SCH (21:50)
[2018-01-22 22:00] VITALS: BP 133/64
[2018-01-23 05:00] VITALS: BP 150/69
[2018-01-23] MEDS: InsuLIN REG 1unit/0.01ml Soln (100units/ml) SC SCH ×4 (06:00→23:36)
[2018-01-23] MEDS: LACTULOSE 20Gm/30ML SOLN PEG SCH ×4 (06:00→21:43)
[2018-01-23] MEDS: MEROPENEM 1gm/20ml IVPUSH 20 ML IV SCH ×3 (06:19→23:34)
[2018-01-23] MEDS: METOCLOPRAMIDE HCL 5MG/ml INJ 2ml VIAL IV SCH ×3 (06:19→21:43)
[2018-01-23] MEDS: ISOSORBIDE DINITRATE 10 MG TAB PEG SCH ×3 (06:19→17:52)
[2018-01-23] MEDS: ACCU-CHEK COMFORT CURVE STRIP VI SCH ×4 (06:20→23:34)
[2018-01-23 06:33] LABS: Albumin 1.8 g/dL (3.4-5.0); BUN/Creatinine Ratio 34.6; Bilirubin, Total 0.3 mg/dL (0.2-1.0); Calcium 8.6 mg/dL (8.5-10.1); Magnesium 2.4 mg/dL (1.6-2.6); Phosphorus 2.7 mg/dL (2.5-4.90); Total Protein 7.1 g/dL (6.4-8.2)
[2018-01-23 08:00] VITALS: BP 156/72
[2018-01-23 09:08] LABS: Basophils # (auto) 0.1 uL; Basophils % (auto) 0.9 % (0.0-2.0); Eosinophils # (auto) 0.2 uL; Eosinophils % (auto) 2.4 % (0.0-7.0); Hemoglobin 9.8 g/dL (13.5-17.5); Lymphocytes # (auto) 1.8 uL; Lymphocytes % (auto) 17.7 % (10.0-50.0); Mean Corpuscular Hemoglobin 28.9 pg (28.0-32.0); Mean Corpuscular Hgb Conc. 32.5 g/dL (32.0-36.0); Monocytes # (auto) 0.9 uL; Monocytes % (auto) 9.4 % (0.0-12.0); Neutrophils # (auto) 6.9 uL; Neutrophils % (auto) 69.6 % (37.0-80.0); Nucleated Red Blood Cells % 0.1 %; Platelet Count (auto) 297 10^3/uL (140-450); Red Blood Cells 3.37 10^6/uL (4.5-5.90); Red Cell Distribution Width 15.3 % (11.8-14.3)
[2018-01-23] MEDS: LISINOPRIL 20 MG TAB PO SCH (09:15)
[2018-01-23] MEDS: MICAFUNGIN SODIUM 100 MG in D5W 5% 100 ML IV SCH (09:15)
[2018-01-23] MEDS: CARVEDILOL 12.5 MG TAB PEG SCH ×2 (09:16→21:44)
[2018-01-23] MEDS: PANTOPRAZOLE 40 MG/10 ML VIAL IV SCH (09:16)
[2018-01-23] MEDS: SODIUM CHLOR 0.9% PF (SALINE LOCK) 10ML VIAL/SYR IV SCH ×2 (09:18→21:43)
[2018-01-23] MEDS: NALBUPHINE HCL 10 MG/1ml INJECTION IV PRN ×2 (09:19→17:52)
[2018-01-23 11:00] VITALS: BP 114/64
[2018-01-23 16:00] VITALS: BP 152/74
[2018-01-23] MEDS: VANCOMYCIN 750 MG in D5W 5% 250 ML IV SCH (17:51)
[2018-01-23] MEDS: SODIUM CHLORIDE 0.9% 1,000 ML IV SCH (17:51)
[2018-01-23] MEDS ORDERED: TPN PER PHARMACY IV NR ×11 (20:00)
[2018-01-23] MEDS: ATORVASTATIN 20 MG TAB PO SCH (21:44)
[2018-01-23 22:00] VITALS: BP 127/68
[2018-01-24 05:00] VITALS: BP 132/76
[2018-01-24] MEDS: InsuLIN REG 1unit/0.01ml Soln (100units/ml) SC SCH ×3 (06:00→17:34)
[2018-01-24] MEDS: LACTULOSE 20Gm/30ML SOLN PEG SCH ×4 (06:20→22:41)
[2018-01-24] MEDS: METOCLOPRAMIDE HCL 5MG/ml INJ 2ml VIAL IV SCH ×3 (06:20→22:41)
[2018-01-24] MEDS: MEROPENEM 1gm/20ml IVPUSH 20 ML IV SCH ×3 (06:21→23:55)
[2018-01-24] MEDS: ISOSORBIDE DINITRATE 10 MG TAB PEG SCH ×3 (06:21→17:34)
[2018-01-24] MEDS: ACCU-CHEK COMFORT CURVE STRIP VI SCH ×4 (06:21→23:55)
[2018-01-24 09:00] VITALS: BP 112/54
[2018-01-24] MEDS: LISINOPRIL 20 MG TAB PO SCH (10:00)
[2018-01-24] MEDS: CARVEDILOL 12.5 MG TAB PEG SCH ×2 (10:00→22:42)
[2018-01-24 10:03] LABS: Basophils # (auto) 0.1 uL; Eosinophils # (auto) 0.3 uL; Eosinophils % (auto) 2.9 % (0.0-7.0); Hematocrit 27.2 % (41.0-53.0); Lymphocytes # (auto) 1.6 uL; Lymphocytes % (auto) 17.1 % (10.0-50.0); Mean Corpuscular Hemoglobin 29.5 pg (28.0-32.0); Mean Corpuscular Volume 89.3 fL (80.0-100.0); Monocytes % (auto) 10.6 % (0.0-12.0); Neutrophils # (auto) 6.5 uL; Neutrophils % (auto) 68.4 % (37.0-80.0); Nucleated Red Blood Cells % 0.1 %; Platelet Count (auto) 294 10^3/uL (140-450); Red Blood Cells 3.04 10^6/uL (4.5-5.90); Red Cell Distribution Width 15.5 % (11.8-14.3); White Blood Cell 9.5 10^3/uL (4.4-10.8)
[2018-01-24 10:24] LABS: Albumin 1.8 g/dL (3.4-5.0); BUN/Creatinine Ratio 38.5; Bilirubin, Total 0.3 mg/dL (0.2-1.0); Calcium 8.6 mg/dL (8.5-10.1); Magnesium 2.4 mg/dL (1.6-2.6); Phosphorus 2.4 mg/dL (2.5-4.90); Potassium 4.2 mmol/L (3.5-5.1); Total Protein 7.2 g/dL (6.4-8.2)
[2018-01-24] MEDS: SODIUM CHLOR 0.9% PF (SALINE LOCK) 10ML VIAL/SYR IV SCH ×2 (10:30→22:41)
[2018-01-24] MEDS: PANTOPRAZOLE 40 MG/10 ML VIAL IV SCH (10:30)
[2018-01-24] MEDS: MICAFUNGIN SODIUM 100 MG in D5W 5% 100 ML IV SCH (10:30)
[2018-01-24 13:00] VITALS: BP 153/70
[2018-01-24] MEDS: SODIUM CHLORIDE 0.9% 1,000 ML IV SCH (16:45)
[2018-01-24] MEDS: VANCOMYCIN 750 MG in D5W 5% 250 ML IV SCH (16:45)
[2018-01-24 17:00] VITALS: BP 138/72
[2018-01-24] MEDS ORDERED: TPN PER PHARMACY IV NR ×10 (20:00)
[2018-01-24 22:00] VITALS: BP 128/65
[2018-01-24] MEDS: ATORVASTATIN 20 MG TAB PO SCH (22:42)
[2018-01-25] MEDS: InsuLIN REG 1unit/0.01ml Soln (100units/ml) SC SCH ×5 (00:17→23:40)
[2018-01-25 05:00] VITALS: BP 172/77
[2018-01-25] MEDS: LACTULOSE 20Gm/30ML SOLN PEG SCH ×4 (05:57→21:51)
[2018-01-25] MEDS: ACCU-CHEK COMFORT CURVE STRIP VI SCH ×4 (05:57→23:40)
[2018-01-25] MEDS: METOCLOPRAMIDE HCL 5MG/ml INJ 2ml VIAL IV SCH ×3 (05:57→21:51)
[2018-01-25] MEDS: ISOSORBIDE DINITRATE 10 MG TAB PEG SCH ×3 (05:57→17:46)
[2018-01-25 06:25] LABS: Albumin 1.8 g/dL (3.4-5.0); BUN/Creatinine Ratio 38.7; Bilirubin, Total 0.3 mg/dL (0.2-1.0); Calcium 8.4 mg/dL (8.5-10.1); Magnesium 2.7 mg/dL (1.6-2.6); Phosphorus 2.7 mg/dL (2.5-4.90); Potassium 3.8 mmol/L (3.5-5.1); Pre Albumin 20.5 mg/dL (20.0-40.0); Total Protein 7.5 g/dL (6.4-8.2)
[2018-01-25] MEDS: MEROPENEM 1gm/20ml IVPUSH 20 ML IV SCH ×3 (06:51→23:41)
[2018-01-25 09:00] VITALS: BP 141/73
[2018-01-25] MEDS: SODIUM CHLOR 0.9% PF (SALINE LOCK) 10ML VIAL/SYR IV SCH ×2 (10:00→21:51)
[2018-01-25] MEDS: PANTOPRAZOLE 40 MG/10 ML VIAL IV SCH (10:49)
[2018-01-25] MEDS: MICAFUNGIN SODIUM 100 MG in D5W 5% 100 ML IV SCH (10:49)
[2018-01-25] MEDS: CARVEDILOL 12.5 MG TAB PEG SCH ×2 (10:50→21:52)
[2018-01-25] MEDS: LISINOPRIL 20 MG TAB PO SCH (10:50)
[2018-01-25 13:00] VITALS: BP 114/81
[2018-01-25] MEDS: NALBUPHINE HCL 10 MG/1ml INJECTION IV PRN (14:09)
[2018-01-25 17:00] VITALS: BP 125/62
[2018-01-25] MEDS: SODIUM CHLORIDE 0.9% 1,000 ML IV SCH (17:43)
[2018-01-25] MEDS: VANCOMYCIN 1GM/250ML 250 ML IV SCH (17:44)
[2018-01-25] MEDS ORDERED: TPN PER PHARMACY IV NR ×9 (20:00)
[2018-01-25] MEDS: ATORVASTATIN 20 MG TAB PO SCH (21:52)
[2018-01-25 21:54] VITALS: BP 158/77
[2018-01-26 05:10] VITALS: BP 143/76
[2018-01-26] MEDS: METOCLOPRAMIDE HCL 5MG/ml INJ 2ml VIAL IV SCH ×3 (05:37→22:00)
[2018-01-26] MEDS: ACCU-CHEK COMFORT CURVE STRIP VI SCH ×4 (05:37→23:47)
[2018-01-26] MEDS: InsuLIN REG 1unit/0.01ml Soln (100units/ml) SC SCH ×4 (05:37→23:47)
[2018-01-26] MEDS: LACTULOSE 20Gm/30ML SOLN PEG SCH ×4 (05:59→23:53)
[2018-01-26] MEDS: ISOSORBIDE DINITRATE 10 MG TAB PEG SCH ×3 (05:59→17:55)
[2018-01-26] MEDS: MEROPENEM 1gm/20ml IVPUSH 20 ML IV SCH ×3 (06:00→23:00)
[2018-01-26 06:23] LABS: Albumin 1.8 g/dL (3.4-5.0); Bilirubin, Total 0.4 mg/dL (0.2-1.0); Calcium 8.5 mg/dL (8.5-10.1); Magnesium 2.7 mg/dL (1.6-2.6); Phosphorus 2.7 mg/dL (2.5-4.90); Total Protein 7.6 g/dL (6.4-8.2)
[2018-01-26 09:00] VITALS: BP 107/63
[2018-01-26] MEDS: CARVEDILOL 12.5 MG TAB PEG SCH ×2 (10:00→23:43)
[2018-01-26] MEDS: LISINOPRIL 20 MG TAB PO SCH (10:00)
[2018-01-26] MEDS: SODIUM CHLOR 0.9% PF (SALINE LOCK) 10ML VIAL/SYR IV SCH ×2 (10:40→23:42)
[2018-01-26] MEDS: MICAFUNGIN SODIUM 100 MG in D5W 5% 100 ML IV SCH (10:40)
[2018-01-26] MEDS: PANTOPRAZOLE 40 MG/10 ML VIAL IV SCH (10:40)
[2018-01-26] MEDS: NALBUPHINE HCL 10 MG/1ml INJECTION IV PRN (12:42)
[2018-01-26 14:00] VITALS: BP 119/73
[2018-01-26] MEDS ORDERED: Glucerna 1.2 Cal 1Liter BOTTLE GT SCH (14:15)
[2018-01-26] MEDS ORDERED: MAGNESIUM CITRATE SOLUTION 300 ML BTL PEG ONE (14:15)
[2018-01-26 16:55] VITALS: BP 156/83
[2018-01-26] MEDS: SODIUM CHLORIDE 0.9% 1,000 ML IV SCH (16:55)
[2018-01-26] MEDS: VANCOMYCIN 1GM/250ML 250 ML IV SCH (17:55)
[2018-01-26] MEDS ORDERED: SODIUM PHOSPHATES IV NR ×7 (20:00)
[2018-01-26] MEDS ORDERED: FAT EMULSION IV NR ×7 (20:00)
[2018-01-26] MEDS ORDERED: POTASSIUM ACETATE IV NR ×7 (20:00)
[2018-01-26] MEDS ORDERED: [UNRECOGNIZED DRUG - OTHER] IV NR ×7 (20:00)
[2018-01-26 22:00] VITALS: BP 128/69
[2018-01-26] MEDS: ATORVASTATIN 20 MG TAB PO SCH (23:46)
[2018-01-27 05:00] VITALS: BP 138/73
[2018-01-27] MEDS: InsuLIN REG 1unit/0.01ml Soln (100units/ml) SC SCH ×3 (06:00→18:00)
[2018-01-27] MEDS: LACTULOSE 20Gm/30ML SOLN PEG SCH ×4 (06:00→22:38)
[2018-01-27 06:13] LABS: Albumin 1.8 g/dL (3.4-5.0); Bilirubin, Total 0.5 mg/dL (0.2-1.0); Calcium 8.5 mg/dL (8.5-10.1); Magnesium 2.5 mg/dL (1.6-2.6); Phosphorus 2.7 mg/dL (2.5-4.90); Potassium 4.2 mmol/L (3.5-5.1); Total Protein 7.1 g/dL (6.4-8.2)
[2018-01-27] MEDS: ISOSORBIDE DINITRATE 10 MG TAB PEG SCH ×3 (07:51→18:29)
[2018-01-27] MEDS: MEROPENEM 1gm/20ml IVPUSH 20 ML IV SCH (07:51)
[2018-01-27] MEDS: METOCLOPRAMIDE HCL 5MG/ml INJ 2ml VIAL IV SCH ×3 (07:51→22:37)
[2018-01-27 09:33] VITALS: BP 140/68
[2018-01-27] MEDS ORDERED: TPN PER PHARMACY IV SCH ×6 (09:45)
[2018-01-27] MEDS: ACCU-CHEK COMFORT CURVE STRIP VI SCH ×3 (11:08→18:29)
[2018-01-27] MEDS: PANTOPRAZOLE 40 MG/10 ML VIAL IV SCH (11:11)
[2018-01-27] MEDS: SODIUM CHLOR 0.9% PF (SALINE LOCK) 10ML VIAL/SYR IV SCH ×2 (11:11→22:37)
[2018-01-27] MEDS: MICAFUNGIN SODIUM 100 MG in D5W 5% 100 ML IV SCH (11:11)
[2018-01-27] MEDS: LISINOPRIL 20 MG TAB PO SCH (11:12)
[2018-01-27] MEDS: CARVEDILOL 12.5 MG TAB PEG SCH ×2 (11:12→22:38)
[2018-01-27] MEDS ORDERED: MAGNESIUM CITRATE SOLUTION 300 ML BTL PEG ONE (12:00)
[2018-01-27 13:00] VITALS: BP 140/78
[2018-01-27 16:44] VITALS: BP 103/51
[2018-01-27] MEDS: SODIUM CHLORIDE 0.9% 1,000 ML IV SCH (16:45)
[2018-01-27] MEDS: VANCOMYCIN 1GM/250ML 250 ML IV SCH (18:28)
[2018-01-27] MEDS ORDERED: TPN PER PHARMACY IV NR ×6 (20:00)
[2018-01-27 22:00] VITALS: BP 131/80
[2018-01-27] MEDS: ATORVASTATIN 20 MG TAB PO SCH (22:38)
[2018-01-28] MEDS: InsuLIN REG 1unit/0.01ml Soln (100units/ml) SC SCH ×4 (00:28→17:46)
[2018-01-28] MEDS: ACCU-CHEK COMFORT CURVE STRIP VI SCH ×4 (00:28→17:46)
[2018-01-28 05:00] VITALS: BP 137/72
[2018-01-28] MEDS: LACTULOSE 20Gm/30ML SOLN PEG SCH ×4 (05:18→21:45)
[2018-01-28] MEDS: METOCLOPRAMIDE HCL 5MG/ml INJ 2ml VIAL IV SCH ×3 (06:06→22:02)
[2018-01-28] MEDS: ISOSORBIDE DINITRATE 10 MG TAB PEG SCH ×3 (06:07→17:51)
[2018-01-28 07:47] LABS: Basophils # (auto) 0.1 uL; Eosinophils # (auto) 0.3 uL; Hemoglobin 8.1 g/dL (13.5-17.5); Monocytes % (auto) 11.3 % (0.0-12.0)
[2018-01-28 07:49] LABS: Eosinophils % (auto) 2.8 % (0.0-7.0); Hematocrit 25.1 % (41.0-53.0); Lymphocytes % (auto) 21.6 % (10.0-50.0); Mean Corpuscular Hemoglobin 29.8 pg (28.0-32.0); Mean Corpuscular Hgb Conc. 32.3 g/dL (32.0-36.0); Mean Corpuscular Volume 92.1 fL (80.0-100.0); Neutrophils # (auto) 5.9 uL; Neutrophils % (auto) 63.3 % (37.0-80.0); Nucleated Red Blood Cells % 0.1 %; Platelet Count (auto) 301 10^3/uL (140-450); Red Blood Cells 2.73 10^6/uL (4.5-5.90); Red Cell Distribution Width 16.4 % (11.8-14.3); White Blood Cell 9.3 10^3/uL (4.4-10.8)
[2018-01-28 08:07] LABS: Albumin 1.7 g/dL (3.4-5.0); BUN/Creatinine Ratio 36.5; Bilirubin, Total 0.2 mg/dL (0.2-1.0); Calcium 8.8 mg/dL (8.5-10.1); Magnesium 2.9 mg/dL (1.6-2.6); Phosphorus 2.8 mg/dL (2.5-4.90); Potassium 4.4 mmol/L (3.5-5.1); Total Protein 7.1 g/dL (6.4-8.2)
[2018-01-28 09:00] VITALS: BP 125/60
[2018-01-28] MEDS: LISINOPRIL 20 MG TAB PO SCH (11:28)
[2018-01-28] MEDS: CARVEDILOL 12.5 MG TAB PEG SCH ×2 (11:29→22:02)
[2018-01-28] MEDS: PANTOPRAZOLE 40 MG/10 ML VIAL IV SCH (11:29)
[2018-01-28] MEDS: MICAFUNGIN SODIUM 100 MG in D5W 5% 100 ML IV SCH (11:49)
[2018-01-28 12:56] VITALS: BP 135/89
[2018-01-28 16:37] VITALS: BP 127/60
[2018-01-28] MEDS: SODIUM CHLORIDE 0.9% 1,000 ML IV SCH (17:51)
[2018-01-28] MEDS: VANCOMYCIN 1GM/250ML 250 ML IV SCH (17:52)
[2018-01-28] MEDS ORDERED: ACETAMINOPHEN 650 mg PER 20 mL UD GT PRN (18:45)
[2018-01-28 22:00] VITALS: BP 120/60
[2018-01-28] MEDS: ATORVASTATIN 20 MG TAB PO SCH (22:02)
[2018-01-29] MEDS: InsuLIN REG 1unit/0.01ml Soln (100units/ml) SC SCH ×4 (00:26→18:00)
[2018-01-29] MEDS: ACCU-CHEK COMFORT CURVE STRIP VI SCH ×4 (00:26→18:00)
[2018-01-29 05:00] VITALS: BP 133/80
[2018-01-29] MEDS: LACTULOSE 20Gm/30ML SOLN PEG SCH (05:47)
[2018-01-29] MEDS: METOCLOPRAMIDE HCL 5MG/ml INJ 2ml VIAL IV SCH ×3 (06:24→21:55)
[2018-01-29] MEDS: ISOSORBIDE DINITRATE 10 MG TAB PEG SCH ×3 (06:24→18:00)
[2018-01-29 08:36] LABS: Basophils # (auto) 0.1 uL; Basophils % (auto) 0.8 % (0.0-2.0); Eosinophils # (auto) 0.1 uL; Eosinophils % (auto) 1.1 % (0.0-7.0); Hematocrit 28.2 % (41.0-53.0); Hemoglobin 9.1 g/dL (13.5-17.5); Lymphocytes # (auto) 1.7 uL; Lymphocytes % (auto) 20.6 % (10.0-50.0); Mean Corpuscular Hemoglobin 29.1 pg (28.0-32.0); Mean Corpuscular Hgb Conc. 32.3 g/dL (32.0-36.0); Mean Corpuscular Volume 90.2 fL (80.0-100.0); Monocytes # (auto) 0.9 uL; Monocytes % (auto) 10.2 % (0.0-12.0); Neutrophils # (auto) 5.7 uL; Neutrophils % (auto) 67.3 % (37.0-80.0); Nucleated Red Blood Cells % 0.1 %; Platelet Count (auto) 279 10^3/uL (140-450); Red Blood Cells 3.13 10^6/uL (4.5-5.90); Red Cell Distribution Width 16.1 % (11.8-14.3); White Blood Cell 8.4 10^3/uL (4.4-10.8)
[2018-01-29 08:56] LABS: BUN/Creatinine Ratio 34.8; Calcium 8.6 mg/dL (8.5-10.1); Potassium 4.1 mmol/L (3.5-5.1)
[2018-01-29 09:00] VITALS: BP 139/66
[2018-01-29] MEDS: MICAFUNGIN SODIUM 100 MG in D5W 5% 100 ML IV SCH (10:00)
[2018-01-29] MEDS: PANTOPRAZOLE 40 MG/10 ML VIAL IV SCH (10:56)
[2018-01-29] MEDS: LISINOPRIL 20 MG TAB PO SCH (10:56)
[2018-01-29] MEDS: CARVEDILOL 12.5 MG TAB PEG SCH ×2 (10:56→21:55)
[2018-01-29 13:00] VITALS: BP 141/75
[2018-01-29] MEDS: SODIUM CHLORIDE 0.9% 1,000 ML IV SCH (16:45)
[2018-01-29 18:17] VITALS: BP 147/60
[2018-01-29 21:30] VITALS: BP 145/80
[2018-01-29] MEDS: ATORVASTATIN 20 MG TAB PO SCH (21:55)
[2018-01-29] MEDS ORDERED: VANCOMYCIN PER PHARMACY 0 MG IV SCH (22:45)
== END 2018-01-29 22:45 | disposition hospice, home (50) | DRG 853 ==
LOC: ER 18:26 → TELE 18:27 → TELE-EAST 12-31 09:05 → ICU WEST 01-12 06:33 → TELE-CENTR 01-16 16:01
PROVIDERS: ADMIT Nurse Practitioner; ATTEND Internal Medicine Pulmonary Disease
PROC: 30233N1 Transfusion of Nonautologous Red Blood Cells into Peripheral Vein, Percutaneous Approach (ICD-10-PCS; 2017-12-31)
PROC: B41G1ZZ Fluoroscopy of Left Lower Extremity Arteries using Low Osmolar Contrast (ICD-10-PCS; principal; 2018-01-06)
PROC: 04CL3ZZ Extirpation of Matter from Left Femoral Artery, Percutaneous Approach (ICD-10-PCS; 2018-01-06)
PROC: 04CQ3ZZ Extirpation of Matter from Left Anterior Tibial Artery, Percutaneous Approach (ICD-10-PCS; 2018-01-06)
PROC: 047L3ZZ Dilation of Left Femoral Artery, Percutaneous Approach (ICD-10-PCS; 2018-01-06)
PROC: 047Q3ZZ Dilation of Left Anterior Tibial Artery, Percutaneous Approach (ICD-10-PCS; 2018-01-06)
PROC: 02HV33Z Insertion of Infusion Device into Superior Vena Cava, Percutaneous Approach (ICD-10-PCS; 2018-01-09)
PROC: 5A1945Z Respiratory Ventilation, 24-96 Consecutive Hours (ICD-10-PCS; 2018-01-12)
PROC: 0BH17EZ Insertion of Endotracheal Airway into Trachea, Via Natural or Artificial Opening (ICD-10-PCS; 2018-01-12)
PROC: 0Y6Q0Z0 Detachment at Left 1st Toe, Complete, Open Approach (ICD-10-PCS; 2018-01-22)
DX: A41.9 Sepsis, unspecified organism (principal); G93.41 Metabolic encephalopathy; J69.0 Pneumonitis due to inhalation of food and vomit; E43 Unspecified severe protein-calorie malnutrition; J96.20 Acute and chronic respiratory failure, unspecified whether with hypoxia or hypercapnia; M86.9 Osteomyelitis, unspecified; N39.0 Urinary tract infection, site not specified; E87.0 Hyperosmolality and hypernatremia; E11.52 Type 2 diabetes mellitus with diabetic peripheral angiopathy with gangrene; M86.8X7 Other osteomyelitis, ankle and foot; E11.51 Type 2 diabetes mellitus with diabetic peripheral angiopathy without gangrene; L97.519 Non-pressure chronic ulcer of other part of right foot with unspecified severity; L89.150 Pressure ulcer of sacral region, unstageable; D64.9 Anemia, unspecified; E11.22 Type 2 diabetes mellitus with diabetic chronic kidney disease; E11.621 Type 2 diabetes mellitus with foot ulcer; I12.9 Hypertensive chronic kidney disease with stage 1 through stage 4 chronic kidney disease, or unspecified chronic kidney disease; I67.2 Cerebral atherosclerosis; I70.0 Atherosclerosis of aorta; I70.202 Unspecified atherosclerosis of native arteries of extremities, left leg; L89.210 Pressure ulcer of right hip, unstageable; L03.032 Cellulitis of left toe; L03.031 Cellulitis of right toe; M19.90 Unspecified osteoarthritis, unspecified site; N18.9 Chronic kidney disease, unspecified; L97.529 Non-pressure chronic ulcer of other part of left foot with unspecified severity; Z79.899 Other long term (current) drug therapy; B96.1 Klebsiella pneumoniae [K. pneumoniae] as the cause of diseases classified elsewhere; B95.62 Methicillin resistant Staphylococcus aureus infection as the cause of diseases classified elsewhere; B96.89 Other specified bacterial agents as the cause of diseases classified elsewhere; B95.2 Enterococcus as the cause of diseases classified elsewhere; Z93.1 Gastrostomy status; Z74.01 Bed confinement status; Z79.4 Long term (current) use of insulin; I69.320 Aphasia following cerebral infarction; Z68.24 Body mass index [BMI] 24.0-24.9, adult
CPT/HCPCS: 36415; 36430; 36569; 36600; 37225; 37229; 51702; 70450; 71045; 71275; 73700; 74018; 75710; 76937; 80048; 80053; 80202; 80307; 80320; 81001; 82040; 82805; 82962; 83605; 83735; 83880; 84100; 84478; 84484; 85025; 85379; 85610; 85652; 85730; 86850; 86900; 86901; 86920; 87040; 87070; 87077; 87081; 87086; 87088; 87186; 87205; 93005; 93306; 93926; 93970; 93971; 94002; 94003; 94761; 96361; 96365; 96367; 96375; 96379; 99152; 99291; A6257; C9113; J0330; J0690; J1815; J1885; J1956; J2001; J2248; J2250; J2543; J2704; J3490; J7060; J7131

== ENCOUNTER 2018-08-22 10:33 | Inpatient (IN) | payer MEDICARE ==
[~2018-08-22] VITALS: Ht 177.8 cm; Wt 40.8 kg
[~2018-08-22 10:33] MED LIST: ASPI-378 PO; ATO40T PO; CARV12.544 PO; CLOP75TA28 PO; DOCU-94 PO; DOXY-216 PO; EMPA1TAB PO; FERR-20 PO; FURO40TA4 PO; GLIP-115 PO; HYDR25TA4 PO; IBUP400T21 PO; ISOS20TA56 PO; LEVO25TA6 PO; METF-929 PO; MULT-569 PO; POTA10TA51 PO; SITA100T7 PO; SULF400T11 PO; TAMS0.4C36 PO
[2018-08-22] MEDS ORDERED: SODIUM CHLORIDE 0.9% 1,000 ML IV ONE (10:36)
[2018-08-22] MEDS ORDERED: LEVOFLOXACIN 500 MG/100 ML PREMIX BAG IV ONE (10:45)
[2018-08-22 11:33] LABS: Eosinophils # (auto) 0 uL; Hematocrit 17.6 % (41.0-53.0); White Blood Cell 12.1 10^3/uL (4.4-10.8)
[2018-08-22 11:35] LABS: Basophils # (auto) 0.1 uL; Basophils % (auto) 0.4 % (0.0-2.0); Eosinophils % (auto) 0.3 % (0.0-7.0); Lymphocytes # (auto) 3.1 uL; Lymphocytes % (auto) 26.1 % (10.0-50.0); Mean Corpuscular Hemoglobin 29.9 pg (28.0-32.0); Mean Corpuscular Hgb Conc. 29.8 g/dL (32.0-36.0); Mean Corpuscular Volume 100.5 fL (80.0-100.0); Monocytes # (auto) 1.1 uL; Monocytes % (auto) 8.7 % (0.0-12.0); Neutrophils # (auto) 7.8 uL; Neutrophils % (auto) 64.5 % (37.0-80.0); Nucleated Red Blood Cells % 0.1 %; Platelet Count (auto) 304 10^3/uL (140-450); Red Blood Cells 1.75 10^6/uL (4.5-5.90); Red Cell Distribution Width 18.3 % (11.8-14.3)
[2018-08-22 11:44] LABS: Anion Gap 6 (5-15); Calcium 8.8 mg/dL (8.5-10.1); Carbon Dioxide 26 mmol/L (21-32); Chloride 142 mmol/L (98-107); Glucose 53 mg/dL (74-106); Magnesium 2.7 mg/dL (1.6-2.6); Potassium 3.6 mmol/L (3.5-5.1)
[2018-08-22 11:45] LABS: Lactic Acid w/Reflex 4.1 mmol/L (0.4-2.0)
[2018-08-22 11:51] LABS: Alanine Aminotransferase 10 U/L (16-61); Alkaline Phosphatase 72 U/L (45-117); Aspartate Aminotransferase 20 U/L (15-37); BUN/Creatinine Ratio 49.2; Bilirubin, Total 0.2 mg/dL (0.2-1.0); Blood Alcohol < 3.0 mg/dL (0-5); GFR African American 43 mL/min; GFR Non-African American 35 mL/min; Total Protein 6.7 g/dL (6.4-8.2)
[2018-08-22 11:52] LABS: Hemoglobin 5.2 g/dL (13.5-17.5)
[2018-08-22 11:54] LABS: INR 1.24 (0.9-1.15); Partial Thromboplastin Time 23.8 sec (23.78-33.04); Prothrombin Time 13.1 sec (9.27-12.13)
[2018-08-22 12:16] LABS: Blood Urea Nitrogen 97 mg/dL (7-18); Sodium 174 mmol/L (136-145)
[2018-08-22] MEDS ORDERED: NITROGLYCERIN 0.4 MG SL TAB SL PRN (13:15)
[2018-08-22] MEDS ORDERED: PANTOPRAZOLE 40 MG/10 ML VIAL IV ONE (13:15)
[2018-08-22] MEDS ORDERED: cefTRIAXone 1GM/50ML D5W 50 ML IV ONE (13:15)
[2018-08-22] MEDS ORDERED: LACTULOSE 20Gm/30ML SOLN PO PRN (13:15)
[2018-08-22] MEDS ORDERED: LORazepam 2MG/ML-1ML VIAL IV PRN (13:15)
[2018-08-22] MEDS ORDERED: MORPHINE SULFATE 4 MG/ML SYR/VIAL IV PRN ×2 (13:15)
[2018-08-22] MEDS ORDERED: PROMETHAZINE HCL 25 MG/ML 1ML IV PRN (13:15)
[2018-08-22] MEDS: InsuLIN REG 1unit/0.01ml Soln (100units/ml) SC SCH ×3 (14:00→22:00)
[2018-08-22] MEDS: D5W/SOD CHL 0.45% 1,000 ML IV SCH ×2 (14:08→23:20)
[2018-08-22] MEDS: DEXTROSE (50%) 50ML SYRG IV PRN (14:21)
[2018-08-22] MEDS: FREE WATER GT SCH ×5 (15:00→22:10)
[2018-08-22 15:09] LABS: Amylase 82 U/L (25-115); Lipase 202 U/L (73-393)
[2018-08-22] MEDS: ACCU-CHEK COMFORT CURVE STRIP VI SCH ×2 (16:20→20:15)
[2018-08-22] MEDS ORDERED: CLINDAMYCIN 600MG IV 50 ML IV ONE (16:30)
[2018-08-22] MEDS ORDERED: LEVOFLOXACIN 500MG 100 ML IV ONE (16:30)
[2018-08-22] MEDS: CLINDAMYCIN 600MG IV 50 ML IV SCH (18:00)
[2018-08-22 19:08] LABS: Urine Bacteria MANY /hpf (None Seen); Urine Blood Negative /uL (Negative); Urine Hyaline Cast FEW /lpf (0 - 2); Urine Specific Gravity 1.017 (1.001-1.035); Urine WBC 16 /hpf (0 - 3)
[2018-08-22 20:27] LABS: Hematocrit 14.9 % (41.0-53.0)
[2018-08-22 20:30] LABS: Hemoglobin 4.7 g/dL (13.5-17.5)
[2018-08-22 20:49] LABS: BUN/Creatinine Ratio 49.2; Calcium 8.3 mg/dL (8.5-10.1); Potassium 3.2 mmol/L (3.5-5.1)
[2018-08-22 21:15] VITALS: BP 104/50
[2018-08-22 21:30] VITALS: BP 102/49
[2018-08-22 22:00] VITALS: BP 109/52
[2018-08-22] MEDS: PANTOPRAZOLE 40 MG/10 ML VIAL IV SCH (22:10)
[2018-08-22 22:33] VITALS: BP 119/56
[2018-08-22 23:10] VITALS: BP 101/54
[2018-08-22 23:40] VITALS: BP 111/54
[2018-08-23] VITALS: BP 117/55
[2018-08-23 01:04] VITALS: BP 127/59
[2018-08-23 01:59] LABS: Hemoglobin 7.5 g/dL (13.5-17.5)
[2018-08-23] MEDS: InsuLIN REG 1unit/0.01ml Soln (100units/ml) SC SCH ×6 (02:00→22:00)
[2018-08-23 02:02] LABS: Hematocrit 22.7 % (41.0-53.0)
[2018-08-23] MEDS: CLINDAMYCIN 600MG IV 50 ML IV SCH ×3 (02:17→17:48)
[2018-08-23] MEDS: FREE WATER GT SCH ×12 (02:25→22:42)
[2018-08-23] MEDS: DEXTROSE (50%) 50ML SYRG IV PRN (02:30)
[2018-08-23] MEDS: D5W/SOD CHL 0.45% 1,000 ML IV SCH ×2 (02:55→09:50)
[2018-08-23 03:25] VITALS: BP 127/61
[2018-08-23 03:40] VITALS: BP 124/63
[2018-08-23] MEDS: ACCU-CHEK COMFORT CURVE STRIP VI SCH ×6 (04:01→20:31)
[2018-08-23 04:10] VITALS: BP 120/60
[2018-08-23 05:16] VITALS: BP 131/61
[2018-08-23 07:47] LABS: Basophils # (auto) 0 uL; Basophils % (auto) 0.4 % (0.0-2.0); Eosinophils # (auto) 0.1 uL; Eosinophils % (auto) 1.3 % (0.0-7.0); Hematocrit 27.3 % (41.0-53.0); Lymphocytes # (auto) 1.5 uL; Lymphocytes % (auto) 16.6 % (10.0-50.0); Mean Corpuscular Hemoglobin 29.9 pg (28.0-32.0); Mean Corpuscular Hgb Conc. 32.9 g/dL (32.0-36.0); Mean Corpuscular Volume 90.7 fL (80.0-100.0); Monocytes # (auto) 0.8 uL; Monocytes % (auto) 8.3 % (0.0-12.0); Neutrophils # (auto) 6.7 uL; Neutrophils % (auto) 73.4 % (37.0-80.0); Nucleated Red Blood Cells % 0.1 %; Platelet Count (auto) 265 10^3/uL (140-450); Red Blood Cells 3.01 10^6/uL (4.5-5.90); Red Cell Distribution Width 17.7 % (11.8-14.3); White Blood Cell 9.1 10^3/uL (4.4-10.8)
[2018-08-23 08:15] LABS: Albumin 1.1 g/dL (3.4-5.0); BUN/Creatinine Ratio 48.3; Calcium 8.6 mg/dL (8.5-10.1); Potassium 3.1 mmol/L (3.5-5.1)
[2018-08-23 08:17] LABS: Bilirubin, Total 0.3 mg/dL (0.2-1.0); Total Protein 6.9 g/dL (6.4-8.2)
[2018-08-23] MEDS ORDERED: cefTRIAXone 1GM/50ML D5W 50 ML IV SCH (09:00)
[2018-08-23] MEDS: PANTOPRAZOLE 40 MG/10 ML VIAL IV SCH ×2 (10:29→22:00)
[2018-08-23] MEDS: LEVOFLOXACIN 500MG 100 ML IV SCH (10:30)
[2018-08-23] MEDS ORDERED: DEXTROSE (50%) 50ML SYRG IV ONE (10:30)
[2018-08-23] MEDS: LINEZOLID 600MG/300ML 300 ML IV SCH (22:00)
[2018-08-24] MEDS: ACCU-CHEK COMFORT CURVE STRIP VI SCH ×6 (00:08→20:00)
[2018-08-24] MEDS: FREE WATER GT SCH ×12 (00:12→22:22)
[2018-08-24] MEDS: InsuLIN REG 1unit/0.01ml Soln (100units/ml) SC SCH ×5 (02:00→18:00)
[2018-08-24] MEDS: CLINDAMYCIN 600MG IV 50 ML IV SCH ×3 (02:06→18:00)
[2018-08-24] MEDS: D5W/SOD CHL 0.45% 1,000 ML IV SCH (05:26)
[2018-08-24 06:47] LABS: Basophils # (auto) 0 uL; Basophils % (auto) 0.3 % (0.0-2.0); Eosinophils # (auto) 0.1 uL; Eosinophils % (auto) 0.9 % (0.0-7.0); Hematocrit 26.6 % (41.0-53.0); Hemoglobin 8.9 g/dL (13.5-17.5); Lymphocytes # (auto) 1.9 uL; Lymphocytes % (auto) 18.4 % (10.0-50.0); Mean Corpuscular Hemoglobin 30.6 pg (28.0-32.0); Mean Corpuscular Hgb Conc. 33.6 g/dL (32.0-36.0); Mean Corpuscular Volume 91.2 fL (80.0-100.0); Monocytes # (auto) 0.8 uL; Monocytes % (auto) 8.2 % (0.0-12.0); Neutrophils # (auto) 7.3 uL; Neutrophils % (auto) 72.2 % (37.0-80.0); Platelet Count (auto) 246 10^3/uL (140-450); Red Blood Cells 2.92 10^6/uL (4.5-5.90); Red Cell Distribution Width 17.4 % (11.8-14.3); White Blood Cell 10.1 10^3/uL (4.4-10.8)
[2018-08-24 07:05] LABS: BUN/Creatinine Ratio 36.6; Calcium 7.7 mg/dL (8.5-10.1)
[2018-08-24 07:08] LABS: Bilirubin, Total 0.4 mg/dL (0.2-1.0); Total Protein 6.7 g/dL (6.4-8.2)
[2018-08-24 07:35] LABS: Potassium 2.8 mmol/L (3.5-5.1)
[2018-08-24] MEDS: D5W 5% 1,000 ML IV SCH ×2 (09:31→17:00)
[2018-08-24] MEDS: POTASSIUM CHL 20MEQ/100ML 100 ML IV SCH ×4 (09:31→15:50)
[2018-08-24] MEDS: PANTOPRAZOLE 40 MG/10 ML VIAL IV SCH ×2 (10:16→22:22)
[2018-08-24] MEDS: LEVOFLOXACIN 500MG 100 ML IV SCH (10:16)
[2018-08-24] MEDS: LINEZOLID 600MG/300ML 300 ML IV SCH ×2 (10:56→22:23)
[2018-08-24 18:17] VITALS: BP 126/82
[2018-08-24 22:00] VITALS: BP 142/71
[2018-08-25] MEDS: InsuLIN REG 1unit/0.01ml Soln (100units/ml) SC SCH ×5 (00:05→20:00)
[2018-08-25] MEDS: D5W 5% 1,000 ML IV SCH ×3 (00:06→17:20)
[2018-08-25] MEDS: ACCU-CHEK COMFORT CURVE STRIP VI SCH ×6 (00:06→21:30)
[2018-08-25] MEDS: FREE WATER GT SCH ×12 (00:06→22:10)
[2018-08-25] MEDS: CLINDAMYCIN 600MG IV 50 ML IV SCH ×3 (02:02→18:06)
[2018-08-25] MEDS ORDERED: InsuLIN REG 1unit/0.01ml Soln (100units/ml) SC SCH (04:00)
[2018-08-25 04:50] VITALS: BP 137/70
[2018-08-25 05:30] LABS: Basophils # (auto) 0 uL; Basophils % (auto) 0.3 % (0.0-2.0); Eosinophils # (auto) 0.1 uL; Eosinophils % (auto) 0.9 % (0.0-7.0); Hemoglobin 9.1 g/dL (13.5-17.5); Lymphocytes # (auto) 1.8 uL; Lymphocytes % (auto) 14.9 % (10.0-50.0); Mean Corpuscular Hemoglobin 30.6 pg (28.0-32.0); Mean Corpuscular Hgb Conc. 33.8 g/dL (32.0-36.0); Mean Corpuscular Volume 90.7 fL (80.0-100.0); Monocytes # (auto) 0.7 uL; Monocytes % (auto) 5.8 % (0.0-12.0); Neutrophils # (auto) 9.7 uL; Neutrophils % (auto) 78.1 % (37.0-80.0); Platelet Count (auto) 231 10^3/uL (140-450); Red Blood Cells 2.97 10^6/uL (4.5-5.90); Red Cell Distribution Width 17.7 % (11.8-14.3); White Blood Cell 12.4 10^3/uL (4.4-10.8)
[2018-08-25 05:48] LABS: BUN/Creatinine Ratio 32.3; Calcium 7.8 mg/dL (8.5-10.1)
[2018-08-25 05:50] LABS: Bilirubin, Total 0.4 mg/dL (0.2-1.0); Total Protein 6.2 g/dL (6.4-8.2)
[2018-08-25 06:21] LABS: Albumin 0.9 g/dL (3.4-5.0)
[2018-08-25 09:00] VITALS: BP 147/64
[2018-08-25] MEDS: LINEZOLID 600MG/300ML 300 ML IV SCH ×2 (09:38→23:00)
[2018-08-25] MEDS: PANTOPRAZOLE 40 MG/10 ML VIAL IV SCH ×2 (09:39→22:10)
[2018-08-25] MEDS: LEVOFLOXACIN 500MG 100 ML IV SCH (09:39)
[2018-08-25 13:00] VITALS: BP 140/51
[2018-08-25] MEDS: ALBUMIN 25% 100 ML IV SCH ×2 (14:16→21:30)
[2018-08-25 17:00] VITALS: BP 141/60
[2018-08-25] MEDS: POTASSIUM CHL 20MEQ/100ML 100 ML IV SCH ×3 (17:19→21:00)
[2018-08-25 22:00] VITALS: BP 146/72
[2018-08-26] MEDS: ACCU-CHEK COMFORT CURVE STRIP VI SCH ×6 (00:20→20:21)
[2018-08-26] MEDS: FREE WATER GT SCH ×12 (00:20→22:00)
[2018-08-26] MEDS: InsuLIN REG 1unit/0.01ml Soln (100units/ml) SC SCH ×6 (00:24→20:00)
[2018-08-26] MEDS: D5W 5% 1,000 ML IV SCH ×3 (00:24→18:26)
[2018-08-26] MEDS: CLINDAMYCIN 600MG IV 50 ML IV SCH ×2 (02:00→09:43)
[2018-08-26] MEDS: ALBUMIN 25% 100 ML IV SCH (04:45)
[2018-08-26 05:00] VITALS: BP 134/64
[2018-08-26 06:48] LABS: Basophils # (auto) 0 uL; Basophils % (auto) 0.1 % (0.0-2.0); Eosinophils # (auto) 0.1 uL; Eosinophils % (auto) 0.6 % (0.0-7.0); Hematocrit 25.5 % (41.0-53.0); Hemoglobin 8.6 g/dL (13.5-17.5); Lymphocytes # (auto) 1.3 uL; Lymphocytes % (auto) 13.4 % (10.0-50.0); Mean Corpuscular Hemoglobin 31.2 pg (28.0-32.0); Mean Corpuscular Hgb Conc. 33.6 g/dL (32.0-36.0); Mean Corpuscular Volume 92.8 fL (80.0-100.0); Monocytes # (auto) 0.5 uL; Neutrophils # (auto) 7.6 uL; Neutrophils % (auto) 80.9 % (37.0-80.0); Platelet Count (auto) 171 10^3/uL (140-450); Red Blood Cells 2.75 10^6/uL (4.5-5.90); Red Cell Distribution Width 17.5 % (11.8-14.3); White Blood Cell 9.4 10^3/uL (4.4-10.8)
[2018-08-26 07:07] LABS: Albumin 2.1 g/dL (3.4-5.0); BUN/Creatinine Ratio 22.7; Bilirubin, Total 0.6 mg/dL (0.2-1.0); Calcium 8.1 mg/dL (8.5-10.1); Total Protein 6.7 g/dL (6.4-8.2)
[2018-08-26 07:23] LABS: Potassium 2.9 mmol/L (3.5-5.1)
[2018-08-26 09:00] VITALS: BP 139/79
[2018-08-26] MEDS: DEXTROSE (50%) 50ML SYRG IV PRN (09:08)
[2018-08-26] MEDS: LEVOFLOXACIN 500MG 100 ML IV SCH (09:43)
[2018-08-26] MEDS: PANTOPRAZOLE 40 MG/10 ML VIAL IV SCH ×2 (09:43→22:44)
[2018-08-26] MEDS: LINEZOLID 600MG/300ML 300 ML IV SCH (09:43)
[2018-08-26] MEDS: POTASSIUM CHL 20MEQ/100ML 100 ML IV SCH ×3 (11:01→15:48)
[2018-08-26] MEDS ORDERED: Glucerna 1.2 Cal 1Liter BOTTLE GT SCH (12:30)
[2018-08-26] MEDS ORDERED: MEROPENEM 500MG IVPB 50 ML IV ONE (12:30)
[2018-08-26 12:45] VITALS: BP 129/68
[2018-08-26] MEDS ORDERED: FLUCONAZOLE 200MG/100ML 100 ML IV SCH (13:00)
[2018-08-26] MEDS ORDERED: FLUCONAZOLE 200MG/100ML 100 ML IV ONE (13:00)
[2018-08-26] MEDS ORDERED: LIDOCAINE 1% (LOCAL ANESTH.) PF 5ml SDV ID ONE (15:15)
[2018-08-26 17:00] VITALS: BP 143/70
[2018-08-26 22:00] VITALS: BP 134/71
[2018-08-26] MEDS ORDERED: MEROPENEM 500MG IVPB 50 ML IV SCH (22:00)
[2018-08-26] MEDS: SODIUM CHLOR 0.9% PF (SALINE LOCK) 10ML VIAL/SYR IV SCH (22:44)
[2018-08-26] MEDS: MEROPENEM 1GM IVPB 100 ML IV SCH (22:44)
[2018-08-27] MEDS: ACCU-CHEK COMFORT CURVE STRIP VI SCH ×5 (00:33→18:08)
[2018-08-27] MEDS: FREE WATER GT SCH ×10 (02:00→18:08)
[2018-08-27] MEDS: InsuLIN REG 1unit/0.01ml Soln (100units/ml) SC SCH ×5 (04:00→16:00)
[2018-08-27 05:39] VITALS: BP 148/78
[2018-08-27 08:31] VITALS: BP 151/87
[2018-08-27] MEDS: FLUCONAZOLE 200MG/100ML 100 ML IV SCH ×2 (09:45→12:32)
[2018-08-27] MEDS: MEROPENEM 1GM IVPB 100 ML IV SCH (09:46)
[2018-08-27] MEDS: PANTOPRAZOLE 40 MG/10 ML VIAL IV SCH (09:47)
[2018-08-27] MEDS: SODIUM CHLOR 0.9% PF (SALINE LOCK) 10ML VIAL/SYR IV SCH (09:47)
[2018-08-27 12:32] VITALS: BP 170/80
[2018-08-27 13:46] VITALS: BP 151/87
== END 2018-08-27 21:30 | disposition home health service (06) | DRG 871 ==
LOC: EDBD 10:33 → ER 10:36 → TELE 13:20 → WEST WING 16:45 → OVERFLOW 08-24 15:59 → WEST WING 08-24 17:25
PROVIDERS: ADMIT Internal Medicine; ATTEND Family Medicine
PROC: 30233N1 Transfusion of Nonautologous Red Blood Cells into Peripheral Vein, Percutaneous Approach (ICD-10-PCS; principal; 2018-08-22)
PROC: 02HV33Z Insertion of Infusion Device into Superior Vena Cava, Percutaneous Approach (ICD-10-PCS; 2018-08-26)
DX: A41.9 Sepsis, unspecified organism (principal); L89.154 Pressure ulcer of sacral region, stage 4; J69.0 Pneumonitis due to inhalation of food and vomit; I21.4 Non-ST elevation (NSTEMI) myocardial infarction; R65.21 Severe sepsis with septic shock; E43 Unspecified severe protein-calorie malnutrition; E87.1 Hypo-osmolality and hyponatremia; N39.0 Urinary tract infection, site not specified; E87.0 Hyperosmolality and hypernatremia; N17.9 Acute kidney failure, unspecified; D68.9 Coagulation defect, unspecified; Z68.1 Body mass index [BMI] 19.9 or less, adult; I69.354 Hemiplegia and hemiparesis following cerebral infarction affecting left non-dominant side; E86.0 Dehydration; E11.51 Type 2 diabetes mellitus with diabetic peripheral angiopathy without gangrene; E11.649 Type 2 diabetes mellitus with hypoglycemia without coma; I10 Essential (primary) hypertension; E78.00 Pure hypercholesterolemia, unspecified; D63.8 Anemia in other chronic diseases classified elsewhere; R09.02 Hypoxemia; E03.9 Hypothyroidism, unspecified; E78.5 Hyperlipidemia, unspecified; N40.0 Benign prostatic hyperplasia without lower urinary tract symptoms; Z16.24 Resistance to multiple antibiotics; B96.89 Other specified bacterial agents as the cause of diseases classified elsewhere; Z93.1 Gastrostomy status; Z87.440 Personal history of urinary (tract) infections; Z89.412 Acquired absence of left great toe; Z79.899 Other long term (current) drug therapy
CPT/HCPCS: 36415; 36556; 36569; 36600; 51702; 71045; 74176; 80048; 80053; 80320; 81001; 82150; 82270; 82550; 82805; 82962; 83036; 83605; 83690; 83735; 83880; 84132; 84295; 84484; 85014; 85018; 85025; 85045; 85610; 85730; 86850; 86900; 86901; 86920; 87040; 87077; 87081; 87086; 87186; 87205; 87493; 93005; 93306; 93926; 96361; 96365; 96375; 99291; A6257; C9113; G0378; J0696; J1450; J1815; J1956; J2185; J3480; J3490; P9047